=== PATIENT | female | born 1955 | race Caucasian/White ===

== ENCOUNTER → 2017-09-21 | Outpatient (CLI) | payer OTHER ==
--- NOTE | 2017-09-21 13:31 | DIAGNOSTIC IMAGING REPORT ---
MRI LUMBAR SPINE W/O CONTRAST CLINICAL HISTORY: LUMBAR RADICULOPATHY TECHNIQUE: Sagittal and axial T1, T2 and STIR images were obtained. COMPARISON STUDY: No previous studies for comparison. OBSERVATIONS: The vertebral bodies and posterior elements appear intact. There is no abnormal bony signal present to suggest a marrow replacement process. L1-2: No disc protrusions or extrusions. No evidence of spinal canal or neural foraminal compromise. L2-3: No disc protrusions or extrusions. No evidence of spinal canal or neural foraminal compromise. L3-4: There is a circumferential disc bulge asymmetric laterally to the right. There is facet joint hypertrophy. There is minimal triangular spinal canal narrowing. There is no significant foraminal stenosis. L4-5: There is a left paracentral disc protrusion. There is possible impingement of the left L5 nerve root as it separates from the thecal sac. There is no significant foraminal narrowing. There are postsurgical changes of a right hemilaminectomy. L5-S1: There is a small central disc protrusion. There is minor left-sided foraminal narrowing. There is no significant spinal stenosis. The conus appears unremarkable in this noncontrast study. There is marked clumping and displacement of the nerve roots in the cauda equina. Diagnostic considerations include severe arachnoiditis versus a postsurgical arachnoid cyst IMPRESSION: 1. Marked clumping and displacement of the nerve roots in the cauda equina. Diagnostic considerations include severe arachnoiditis versus a postsurgical arachnoid cyst. 2. Left paracentral disc protrusion at the L4-5 level with possible impingement of the left L5 nerve root 3. Small central disc protrusion at the L5-S1 level. Minor left-sided foraminal narrowing. Electronically signed by: Baudilio Samuels M.D. 09/21/2017 1:29 PM Dictated Date/Time: 09/21/2017 12:59 PM
== END | disposition home or self-care (01) ==
LOC: C.MRIBC 11:50
PROVIDERS: ATTEND Pain Medicine Interventional Pain Medicine
DX: M54.16 Radiculopathy, lumbar region (principal)

== ENCOUNTER → 2017-10-26 | Day surgery (SDC) | payer OTHER ==
[~2017-10-26] VITALS: Ht 177.8 cm; Wt 88.7 kg
[~2017-10-26] MED LIST: CYM/30 PO; FRCT/ PO; FRS/40 PO; OXYC-57 PO; SUMA100T16 PO; TOPI100T20 PO; TRAZ50TA35 PO; VNTHFA/IN INH
[2017-10-26 07:57] VITALS: BP 128/90; PULSE 76; TEMP 37; O2SAT 97; Ht 177.8 cm; Wt 88.7 kg
[2017-10-26 09:29] VITALS: BP 88/51; PULSE 66; TEMP 36.6; O2SAT 100
--- NOTE | 2017-10-26 09:35 | Discharge Instructions ---
Discharge Instructions Procedure Procedure Date: Oct 26, 2017. Reason for visit: Lumbar Spine Pain. Discharge Discharge Date: Oct 26, 2017. Discharge Diagnosis: Lumbar back pain Instructions Activity Recommendations: No limitations Return to School/Work: no limitations Recommended Home Diet: Resume Previous Diet Provider Instructions: Fluoroscopic guided lumbar puncture was attempted at L3-L4 and L4-L5. The procedure was unsuccessful and discontinued at the patients request. There were no immediate complications. ACTIVITY RECOMMENDATIONS: * Rest today. * Resume regular activity in one day. MEDICATIONS: * May take Tylenol or Ibuprofen as needed for pain. DIET: * Resume previous diet. SPECIAL CARE INSTRUCTIONS: Call your doctor if: * Temperature above 101 degrees F. * Pain not relieved by pain medicine ordered. * Increased drainage or redness from incision. * Notify your doctor with any questions or concerns. Call your doctor or go to the nearest Emergency Department if you experience: * Increased chest pain or shortness of breath. FOLLOW UP VISIT: Follow-up with Referring Physician as scheduled. Allergies Coded Allergies: NSAIDs (Verified Allergy, Unknown, ANAPHYLAXIS, 10/26/17) Bacilio Reveles Recommendations: Call your doctor if: * Temperature above 101 degrees * Pain not relieved by pain medicine ordered * There is increased drainage or redness from any incision * You have any unanswered questions or concerns. Your Doctors Instructions noted above were prepared by provider Aravind Huber. Patient Signature Section: Patient Instructions Signature Page Maricel Mccormack Patient (or Guardian) Signature/Date: I have read and understand the instructions given to me by my caregivers. Caregiver/RN/Doctor Signature/Date: The above-named patient and/or guardian has received patient instructions on this date. + Original Patient Signature Page (only) stays with chart. Please make copy for patient.
[2017-10-26 09:51] VITALS: BP 122/40; PULSE 61; O2SAT 97
--- NOTE | 2017-10-26 14:39 | DIAGNOSTIC IMAGING REPORT ---
FLUOROSCOPIC LUMBAR PUNCTURE ATTEMPT CLINICAL HISTORY: Low back pain. Spinal stenosis. History of arachnoiditis COMPARISON STUDY: MRI of the lumbar spine dated 09/21/2017. PROCEDURE: The risks, benefits, and alternatives to the procedure was discussed with the patient who voiced understanding. Written informed consent was obtained. The patient was placed prone on the fluoroscopy table. The lower back was prepped and draped in the usual sterile fashion. 1% lidocaine was used for local anesthesia. Lumbar puncture was attempted at the L3-L4 and L4-L5 levels with 22 and 20-gauge spinal needles. The needles appeared to be in appropriate position by fluoroscopy; however, no cerebrospinal fluid was able to be removed and iodinated contrast was not injected. After attempting 2 levels the patient declined to continue the procedure. There were no immediate complications. The patient left department in satisfactory condition. Fluoroscopy time: 1.4 minutes. IMPRESSION: Fluoroscopic guided lumbar puncture attempt. Intrathecal access could not be obtained for contrast injection. Electronically signed by: Aravind Huber M.D. 10/26/2017 2:38 PM Dictated Date/Time: 10/26/2017 2:23 PM
== END | disposition home or self-care (01) ==
LOC: C.ACU 07:37
PROVIDERS: ATTEND Physician Assistant
DX: M48.061 Spinal stenosis, lumbar region without neurogenic claudication (principal)

== ENCOUNTER 2017-11-08 07:03 | Inpatient (IN) | payer OTHER ==
[2017-10-19 11:09] VITALS: BMI 31.0
--- NOTE | 2017-10-19 11:40 | PAT Medication Instructions ---
Service Date Oct 19, 2017. Current Home Medication List Acetamin/Butalbital/Caffeine (Fioricet), 1 TAB PO UD PRN for Migraine Albuterol Hfa (Ventolin Hfa), 2-4 PUFFS INH Q6H PRN for SOB/Wheezing Duloxetine HCl (Cymbalta), 1 CAP PO HS Furosemide (Lasix), 40 MG PO QAM PRN for EDEMA Oxycodone/Acetaminophen 5MG/325MG (Percocet 5MG/325MG), 1-2 TABLETS PO Q4H PRN for Pain Sumatriptan Succinate (Imitrex), 100 MG PO PRN PRN for Migraine Topiramate (Topamax), 100 MG PO QAM Trazodone Hcl (Trazodone), 50 MG PO HS Medication Instructions For Your Scheduled Surgery - Hold the following medications the morning of surgery: Acetamin/Butalbital/Caffeine (Fioricet), 1 TAB PO UD PRN for Migraine Furosemide (Lasix), 40 MG PO QAM PRN for EDEMA - Take the following medications the morning of surgery with a sip of water: Albuterol Hfa (Ventolin Hfa), 2-4 PUFFS INH Q6H PRN for SOB/Wheezing (if needed , and bring it with you to the hospital) Oxycodone/Acetaminophen 5MG/325MG (Percocet 5MG/325MG), 1-2 TABLETS PO Q4H PRN for Pain (if needed, can be used up to four hours before surgery) Sumatriptan Succinate (Imitrex), 100 MG PO PRN PRN for Migraine (if needed) Topiramate (Topamax), 100 MG PO QAM - Take the following medications as scheduled the night before surgery: Acetamin/Butalbital/Caffeine (Fioricet), 1 TAB PO UD PRN for Migraine (if needed ) Albuterol Hfa (Ventolin Hfa), 2-4 PUFFS INH Q6H PRN for SOB/Wheezing (if needed) Duloxetine HCl (Cymbalta), 1 CAP PO HS Oxycodone/Acetaminophen 5MG/325MG (Percocet 5MG/325MG), 1-2 TABLETS PO Q4H PRN for Pain (if needed) Sumatriptan Succinate (Imitrex), 100 MG PO PRN PRN for Migraine (if needed) Trazodone Hcl (Trazodone), 50 MG PO HS If you have any questions please call us at [phone] or [phone] or [phone]
[2017-10-19 12:25] LABS: BASO % 0.2 %; BASO ABS # 0.01 K/uL (0-0.2); EOS % 2.8 %; EOS ABS # 0.13 K/uL (0-0.5); HEMATOCRIT 41.3 % (37-47); HEMOGLOBIN 13.3 g/dL (12.0-16.0); IG# 0.01 K/uL (0.00-0.02); LYMPH % 39.8 %; LYMPH ABS # 1.86 K/uL (1.2-3.4); MEAN CELL VOLUME 93.2 fL (80-100); MEAN CORPUSCULAR HGB CONC 32.2 g/dl (32-36); MEAN PLATELET VOLUME 10.3 fL (7.4-10.4); MONO % 8.1 %; MONO ABS # 0.38 K/uL (0.11-0.59); NEUT % 48.9 %; NEUT ABS # 2.28 K/uL (1.4-6.5); PLATELET COUNT 169 K/uL (130-400); RED CELL DISTRIBUTION WIDTH CV 13.8 % (11.5-14.5); RED CELL DISTRIBUTION WIDTH SD 47.2 fL (36.4-46.3); WHITE BLOOD COUNT 4.67 K/uL (4.8-10.8)
[2017-10-19 12:45] LABS: CREATININE 0.76 mg/dl (0.60-1.20)
[2017-10-19 12:46] LABS: CALCIUM 8.7 mg/dl (8.5-10.1); POTASSIUM 4.2 mmol/L (3.5-5.1)
--- NOTE | 2017-10-19 12:50 | DIAGNOSTIC IMAGING REPORT ---
CHEST 2 VIEWS ROUTINE CLINICAL HISTORY: PAT preoperative evaluation COMPARISON STUDY: No previous studies for comparison. FINDINGS: The bones soft tissues and hemidiaphragms are normal. The cardiomediastinal silhouette is normal. The lungs are clear. The pulmonary vasculature is normal. IMPRESSION: Negative chest. The above report was generated using voice recognition software. It may contain grammatical, syntax or spelling errors. Electronically signed by: Pan Angeles M.D. 10/19/2017 12:49 PM Dictated Date/Time: 10/19/2017 12:48 PM
[2017-11-08] VITALS (9 sets, daily range): BP systolic 94–140; BP diastolic 56–93; PULSE 58–71; TEMP 36.3–36.7; O2SAT 99–100; Ht 177.8 cm; Wt 98.8 kg
[~2017-11-08] VITALS: Ht 177.8 cm; Wt 98.8 kg
[~2017-11-08 07:03] MED LIST changes: +ACETAMINOPHEN 500 MG TAB PO SCH; +CEFAZOLIN 2000MG IV PUSH 15 ML IV SCH; +CeleBREX 200 MG CAP PO SCH; +GABAPENTIN 600 MG PO SCH; +LACTATED RINGER'S 1000ML 1,000 ML IV SCH
[2017-11-08] MEDS ORDERED: FENTANYL CITRATE INJ 50 MCG/1 ML 2 ML VIAL ONE ×4 (09:02→12:58)
[2017-11-08] MEDS ORDERED: DEXAMETHASONE SOD INJ 4 MG/ML VIAL ONE (09:02)
[2017-11-08] MEDS ORDERED: ONDANSETRON INJ 2 MG/ML 2 ML VIAL ONE (09:02)
[2017-11-08] MEDS ORDERED: PROPOFOL IV EMULSION 10 MG/ML 20 ML VIAL ONE (09:02)
[2017-11-08] MEDS ORDERED: MIDAZOLAM HCL 1 MG/ML 2ML VIAL ONE (09:02)
[2017-11-08] MEDS ORDERED: LIDOCAINE HCL 2% 2 ML VIAL (20MG/ML) ONE (09:02)
--- NOTE | 2017-11-08 09:05 | History & Physical Bridge Note ---
H&P Re-Evaluation Bridge Note: I have examined the patient, reviewed the History & Physical and in the interval since the performance of the History & Physical I have noted the following changes of clinical significance: No changes noted
--- NOTE | 2017-11-08 09:05 | History and Physical ---
History & Physical Date November 08, 2017. Chief Complaint Back and leg pain History of Present Illness The patient is a 62 year old female with complaints of back and leg pain Additional History Hepatic Disease: No Endocrine Disorder: No Kidney Disease: No Hypertension: No Heart Disease: No Bleeding Tendencies: No Infectious Diseases: No Allergies Coded Allergies: NSAIDs (Verified Allergy, Unknown, ANAPHYLAXIS, 11/08/17) Home Medications Scheduled Duloxetine HCl (Cymbalta), 1 CAP PO HS Topiramate (Topamax), 100 MG PO QAM Trazodone Hcl (Trazodone), 50 MG PO HS Scheduled PRN Acetamin/Butalbital/Caffeine (Fioricet), 1 TAB PO UD PRN for Migraine Albuterol Hfa (Ventolin Hfa), 2-4 PUFFS INH Q6H PRN for SOB/Wheezing Furosemide (Lasix), 40 MG PO QAM PRN for EDEMA Oxycodone/Acetaminophen 5MG/325MG (Percocet 5MG/325MG), 1-2 TABLETS PO Q4H PRN for Pain Sumatriptan Succinate (Imitrex), 100 MG PO PRN PRN for Migraine Physical Examination Skin: warm/dry, no rash Eyes: normal inspection, EOMI, sclerae normal ENT: normal ENT inspection, pharynx normal Head: normocephalic, atraumatic Neck: supple, no adenopathy, trachea midline Respiratory/Chest: lungs clear, normal breath sounds, no respiratory distress Cardiovascular: regular rate, rhythm, no edema, no murmur Abdomen / GI: normal bowel sounds, non tender Back: normal inspection Extremities: normal inspection, normal range of motion Neurologic/Psych: no motor/sensory deficits, alert, normal reflexes, oriented x 3 Diagnosis Lumbar spinal stenosis with radiculopathy Plan of Treatment L4-S1 decompression and fusion
[2017-11-08] MEDS ORDERED: BACITRACIN 50000 UNIT VIAL ONE (09:22)
[2017-11-08] MEDS ORDERED: BUPIVACAINE/EPINEPHRINE 0.5% MPF 1:200,000 30 ML VIAL ONE (09:22)
[2017-11-08] MEDS ORDERED: EpHEDrine SULFATE 50MG/5ML SYR ONE (10:22)
[2017-11-08] MEDS ORDERED: LABETALOL HCL IV 5 MG/ML 20ML IV PRN (10:45)
[2017-11-08] MEDS ORDERED: PROMETHAZINE HCL INJ 12.5 MG in SODIUM CHLORIDE 0.9% 50ML 50 ML IV PRN ×2 (10:45→12:00)
[2017-11-08] MEDS ORDERED: ONDANSETRON INJ 2 MG/ML 2 ML VIAL IV PRN ×2 (10:45→12:00)
[2017-11-08] MEDS ORDERED: ATROPINE SULFATE 0.1 MG/ML 5ML SYR IV PRN (10:45)
[2017-11-08] MEDS ORDERED: FLOSEAL HEMOSTATIC MATRIX 10ML TOP ONE (11:36)
[2017-11-08] MEDS ORDERED: GLYCOPYRROLATE INJ 0.2 MG/ML VIAL ONE (11:54)
[2017-11-08] MEDS ORDERED: NEOSTIGMINE METHYLSULFATE 1 MG/ML 10ML VIAL ONE (11:54)
[2017-11-08] MEDS ORDERED: SODIUM CHLORIDE 0.9% 1000ML 1,000 ML IV SCH (11:56)
--- NOTE | 2017-11-08 11:56 | [facility] Operative Report ---
Operative Report Operative Date November 08, 2017. Pre-Operative Diagnosis Lumbar spinal stenosis with radiculopathy Post-Operative Diagnosis Same Procedure(s) Performed 1. Revision decompression medial facetectomies foraminotomies L4-5 L5-S1. #2 posterior spinal fusion L4-5 L5-S1. #3 placement of posterior segmental instrumentation L4-5 L5-S1. #4 interbody fusion L4-5 L5-S1. #5 placement of titanium cage 10 x 22 mm at L4-5 and 9 x 22 mm at L5-S1. #6 placement of locally harvested morselized autograft in the posterior lateral gutters. #7 placement of infuse collagen sponge, mass graft the posterior lateral gutters and ostial amp in the interbody space. Surgeon Dr. Forest Torres [employer] Supervisor Surgeon(s) Matilde Palafox PA-C Estimated Blood Loss 200ml Findings Spinal stenosis with herniated nucleus pulposus Specimens None Anesthesia Type General Description of Procedure Patient was met with preoperatively case discussed all questions addressed. After informed consent obtained patient was taken to the operative suite underwent intubation and placed in a prone position on the Dmitriy table on top of the Jeff frame. All bony prominences were well-padded eyes inspected to ensure no external pressure placed upon the. This point the lumbar spine was prepped and draped in normal sterile fashion. Sharp dissection with the assistance of Bovie cautery was performed down to and exposing the remaining lamina and transverse processes of L4-L5 and sacral ala bilaterally. From a caudal to cephalad fashion revision complete laminectomy of L5 L4 was performed addressing severe lateral recess stenosis and foraminal disease. Pedicle screws were then placed in L4 L5-S1 levels bilaterally with the assistance of fluoroscopy and appropriate size laura placed. Through a trans-foraminal approach and left complete discectomy of L5-S1 was performed the endplates curetted curetted to subcortical bleeding bone and a 9 x 22 mm titanium cage filled with ostial amp bone graft tapped in position. Then proceeded L4-5. Again through a transforaminal approach on the left complete discectomy performed including addressed all herniated disc. The endplates curetted to subcortical bleeding bone and a 10 x 22 mm titanium cage filled with ostium bone graft tapped into position. The rods were then compressed locked in final position bilaterally. The transverse processes of L4-L5 and the sacral ala burred to subcortical bleeding bone. Infuse collagen sponge mass graft and locally harvested morselized autograft placed in the posterior gutters. A 15 round NEELAM drain inserted. Incision was then closed with 1 Vicryl fascia 2-0 Vicryl substantially 4 Monocryl for fashion closure Steri-Strips sterile dressings placed. Patient will continue PACU stable condition. Please note Matilde Dalal present throughout the entire procedure involved in patient positioning complex portions of the surgery and fashion closure. I attest to the content of the Intraoperative Record and any orders documented therein. Any exceptions are noted below.
[2017-11-08] MEDS ORDERED: ALUMINUM/MAGNESIUM SUSP 30 ML UDC PO PRN (12:00)
[2017-11-08] MEDS ORDERED: BUTALBITAL/ACETAMIN/CAFFEINE TAB PO PRN (12:00)
[2017-11-08] MEDS ORDERED: ACETAMINOPHEN IV 100 ML IV PRN (12:00)
[2017-11-08] MEDS ORDERED: MAGNESIUM HYDROXIDE SUSP 30 ML UDC PO PRN (12:00)
[2017-11-08] MEDS ORDERED: ALBUTEROL HFA 8 GM INHALER INH PRN (12:00)
[2017-11-08] MEDS ORDERED: METOCLOPRAMIDE HCL INJ 5 MG/ML 2 ML VIAL IV PRN (12:00)
[2017-11-08] MEDS ORDERED: DO NOT ADMINISTER PNEUMOCOCCAL VACCINE PRN (12:00)
[2017-11-08] MEDS ORDERED: NALOXONE HCL 0.4 MG/1 ML VIAL/CARP IV PRN ×2 (12:00)
[2017-11-08] MEDS ORDERED: FUROSEMIDE 40 MG TAB PO PRN (12:00)
[2017-11-08] MEDS ORDERED: SUMATRIPTAN SUCC TAB 100 MG TAB PO PRN (12:00)
[2017-11-08] MEDS ORDERED: LORAZEPAM INJ 0.5 MG in SYRINGE 0.75 ML IV PRN (12:00)
[2017-11-08] MEDS ORDERED: FAMOTIDINE 20 MG TAB PO PRN (12:00)
[2017-11-08] MEDS ORDERED: BISACODYL 10 MG SUPP PR PRN (12:00)
[2017-11-08] MEDS ORDERED: DO NOT ADMINISTER FLU VACCINE PRN (12:00)
[2017-11-08] MEDS ORDERED: SOD PHOSPHATE/SOD BIPHOSPHATE ENEMA 132 ML BTL PR PRN (12:00)
[2017-11-08] MEDS ORDERED: hydrOXYzine HCL 25 MG TAB PO PRN (12:00)
[2017-11-08] MEDS ORDERED: HYDROmorphone HCL 0.5MG/ML 50 ML CASSETTE ONE (12:21)
--- NOTE | 2017-11-08 12:24 | DIAGNOSTIC IMAGING REPORT ---
LUMBAR SPINE, INTRAOPERATIVE FLUOROSCOPY HISTORY: L4 S1 decompression and fusion. FLUOROSCOPY TIME: 35 seconds. FINDINGS: Intraoperative fluoroscopy was provided for the lumbar spine. 2 fluoroscopic spot images were obtained. L4-S1 posterior decompression and fusion with pedicle screws and rods. The hardware appears intact. Disc spacers are also present at these levels. IMPRESSION: Fluoroscopy provided for a L4-S1 posterior decompression and fusion. Electronically signed by: Carter Hobson M.D. 11/08/2017 12:22 PM Dictated Date/Time: 11/08/2017 12:21 PM
[2017-11-08] MEDS ORDERED: HYDROmorphone INJ 2 MG/ML SYR/VIAL ONE (12:27)
[2017-11-08] MEDS: HYDROmorphone INJ 2 MG/ML SYR/VIAL IV PRN ×7 (12:36→13:33)
[2017-11-08] MEDS ORDERED: FENTANYL CITRATE INJ 50 MCG/1 ML 2 ML VIAL IV PRN (13:00)
[2017-11-08] MEDS ORDERED: NURSING VERBAL MED ORDER ONE ×2 (13:15)
--- NOTE | 2017-11-08 13:50 | Anesthesiology Progress Note ---
Anesthesia Post Op Note Date & Time November 08, 2017 at 13:50 Vital Signs Pain Intensity: 6 Vital Signs Past 12 Hours Date Time Temp Pulse Resp B/P (MAP) Pulse Ox O2 Delivery O2 Flow Rate FiO2 11/08/17 13:38 36.3 100 Nasal Cannula 2 11/08/17 13:36 119/69 11/08/17 13:33 66 16 11/08/17 13:33 66 16 100 11/08/17 13:31 133/62 11/08/17 13:28 63 13 11/08/17 13:28 64 13 100 11/08/17 13:27 65 19 11/08/17 13:27 64 19 100 11/08/17 13:25 148/71 11/08/17 13:22 69 17 11/08/17 13:22 69 17 98 11/08/17 13:21 113/77 11/08/17 13:17 65 16 100 11/08/17 13:17 65 16 11/08/17 13:16 116/86 11/08/17 13:12 62 13 11/08/17 13:12 63 13 100 11/08/17 13:11 130/96 11/08/17 13:07 65 14 11/08/17 13:07 66 14 100 11/08/17 13:06 132/81 11/08/17 13:02 62 19 100 11/08/17 13:02 62 19 11/08/17 13:01 123/101 11/08/17 12:57 69 22 100 11/08/17 12:57 68 22 11/08/17 12:52 66 12 100 11/08/17 12:52 67 12 11/08/17 12:51 137/75 11/08/17 12:47 64 16 11/08/17 12:47 63 16 100 11/08/17 12:46 119/73 11/08/17 12:42 65 16 98 11/08/17 12:42 63 16 11/08/17 12:41 131/80 11/08/17 12:40 67 14 11/08/17 12:40 68 14 100 11/08/17 12:37 110/96 11/08/17 12:35 64 18 11/08/17 12:35 64 18 11/08/17 12:31 140/64 11/08/17 12:30 65 12 100 5/7/18 12:30 64 12 11/08/17 12:26 139/70 11/08/17 12:25 67 16 100 11/08/17 12:25 60 16 11/08/17 12:21 137/70 11/08/17 12:20 68 15 100 11/08/17 12:20 68 15 11/08/17 12:15 36.8 68 16 138/76 100 Oxymask 10 11/08/17 12:15 71 138/76 100 11/08/17 12:15 71 11/08/17 07:15 36.7 70 20 140/93 99 Room Air Notes Mental Status: alert / awake / arousable, participated in evaluation Pt Amnestic to Procedure: Yes Nausea / Vomiting: adequately controlled Pain: adequately controlled Airway Patency, RR, SpO2: stable & adequate BP & HR: stable & adequate Hydration State: stable & adequate Anesthetic Complications: no major complications apparent
[2017-11-08] MEDS: HYDROmorphone HCL 0.5MG/ML 50 ML CASSETTE IV PRN ×3 (13:53→23:08)
[2017-11-08] MEDS: SODIUM CHLORIDE 0.9% 1000ML 1,000 ML IV SCH ×2 (13:58→21:01)
[2017-11-08] MEDS: CEFAZOLIN IV 2,000 MG in SYRINGE 0 ML IV SCH (17:38)
[2017-11-08] MEDS: TRAZODONE HCL 50 MG TAB PO SCH (21:01)
[2017-11-08] MEDS: DULOXETINE (CYMBALTA) 30 MG CAP PO SCH (21:02)
[2017-11-08] MEDS: DOCUSATE SODIUM/SENNA 50/8.6MG TAB PO SCH (21:02)
[2017-11-08] MEDS: LORAZEPAM 0.5 MG TAB PO PRN (23:41)
[2017-11-09] MEDS: CEFAZOLIN IV 2,000 MG in SYRINGE 0 ML IV SCH (02:37)
[2017-11-09] MEDS: SODIUM CHLORIDE 0.9% 1000ML 1,000 ML IV SCH (02:38)
[2017-11-09 03:24] VITALS: BP 105/68; PULSE 64; TEMP 36.8; O2SAT 99
[2017-11-09] MEDS ORDERED: DC PCA SCH (06:00)
[2017-11-09 06:07] LABS: BASO % 0.2 %; BASO ABS # 0.01 K/uL (0-0.2); EOS % 1.2 %; EOS ABS # 0.07 K/uL (0-0.5); HEMATOCRIT 34.6 % (37-47); IG# 0.01 K/uL (0.00-0.02); LYMPH % 31.9 %; LYMPH ABS # 1.83 K/uL (1.2-3.4); MEAN CELL VOLUME 93.3 fL (80-100); MEAN CORPUSCULAR HEMOGLOBIN 29.6 pg (25-34); MEAN CORPUSCULAR HGB CONC 31.8 g/dl (32-36); MEAN PLATELET VOLUME 9.5 fL (7.4-10.4); MONO % 8.6 %; MONO ABS # 0.49 K/uL (0.11-0.59); NEUT % 57.9 %; NEUT ABS # 3.32 K/uL (1.4-6.5); PLATELET COUNT 129 K/uL (130-400); RED CELL DISTRIBUTION WIDTH SD 48.3 fL (36.4-46.3); WHITE BLOOD COUNT 5.73 K/uL (4.8-10.8)
[2017-11-09] MEDS ORDERED: NURSING DECISION MEDICATION ORDER SCH (06:30)
[2017-11-09] MEDS: HYDROmorphone INJ 0.5 MG/0.5 ML SYR IV PRN ×4 (06:34→22:14)
[2017-11-09 06:40] LABS: CREATININE 0.62 mg/dl (0.60-1.20); POTASSIUM 4.1 mmol/L (3.5-5.1)
[2017-11-09 07:45] VITALS: BP 128/70; PULSE 71; TEMP 37; O2SAT 97
[2017-11-09 08:13] VITALS: O2SAT 97
[2017-11-09] MEDS: OXYCODONE HCL IR 5 MG TAB (IMMEDIATE RELEASE) PO PRN ×3 (09:16→20:50)
[2017-11-09] MEDS: TOPIRAMATE 100 MG TAB PO SCH (09:16)
[2017-11-09] MEDS ORDERED: RXC5 PO (09:41)
--- NOTE | 2017-11-09 09:42 | Discharge Instructions ---
Discharge Instructions Date of Service November 09, 2017. Admission Reason for Admission: Lumbar Spinal Stenosis Discharge Discharge Diagnosis / Problem: lumbar stenosis Discharge Goals Goal(s): Improve function Activity Recommendations Activity Limitations: per Instructions/Follow-up section . Instructions / Follow-Up Instructions / Follow-Up ACTIVITY RECOMMENDATIONS: SELF CARE INSTRUCTIONS AFTER THORACIC/LUMBAR FUSIONS 1. You may walk to your tolerance. It is good exercise for your legs and back. Expect some back and intermittent leg aches and pains. 2. You may perform "counter-top" level activities (make a sandwich, isai with a project, etc.). 3. No bending or lifting of more than 10 pounds or back twisting of any nature (roll like a log when turning in bed). 4. You may ride in a car for 20-30 minutes at a time. No driving until after your first visit with your doctor. 5. Frequent changes of position and restricting sitting to 30 minutes at a time will help limit the amount of back spasms and stiffness you may experience. 6. You may discontinue the use of ambulatory aids (cane, crutches, etc.) once your strength and confidence allow. 7. You may supervisor mattress and boxsprings the shower and let water strike your incision when you arrive home at least once daily. Do not take a tub bath, sit in a hot tub or go into a swimming pool until after your first recheck in the office. SPECIAL CARE INSTRUCTIONS: VERY IMPORTANT TO READ AND REVIEW A. Your surgical incision has been closed with a cosmetic suture under the skin that will dissolve in about 6 weeks. In 14 days, you can use a pair of clean scissors and cut the suture that is left outside of the skin at the ends of your incision. 1. The small skin tapes can be removed 7 days after surgery if they have not fallen off by that point. 2. You may keep the wound open to air as much as possible to promote healing after post-op day number 5 unless told otherwise by your doctor. 3. If you think the wound looks like it is becoming infected (redness or worsening drainage) and/or you are experiencing fever, chill or worsening back pain and muscle spasms, contact the office so that we may evaluate you as soon as possible. B. Complications are uncommon, but please contact us if you have any signs or symptoms of: 1. wound infection (fever higher than 102.5 degrees F, redness, separation of wound, drainage, or increasing pain from the incision) 2. blood clots in legs (pain, swelling, redness and warmth in legs) 3. urinary tract infection (fever higher than 102.5 degrees F, burning upon urination or increased frequency of urination) 4. nerve problems (inability to walk on your toes or heels, numbness, loss of bowel or bladder control) 5. any other symptoms that concern you C. Please call the office at if you have any concerns or questions about your operation or recovery. D. No smoking! Smoking drastically decreases the chance of a solid fusion. E. Do not take any anti-inflammatory medications (Indocin, Advil, Motrin, Aspirin, Naprosyn, etc.) as these may inhibit the chance of a solid fusion. Tylenol is okay to take for pain. MANAGING PAIN AFTER SPINAL SURGERY 1. Narcotic medication is intended for short-term use and will be provided for surgical pain. Surgical pain usually lasts for a period of 4-6 weeks. Narcotic medication includes Percocet, Vicodin, Darvocet, Tylenol #3 or Lortab. 2. Longer-term pain is more appropriately treated with non-narcotic medication such as Tylenol ES. 3. Muscle spasm is not appropriately treated with narcotics. Muscle relaxers such as Soma, Flexeril or Skelaxin can be used along with Tylenol ES. 4. Remember that we all live with some "aches and pains". This is not unusual or uncommon after an injury or as we get older. a. Back pain is expected and may include muscle spasms for 4 to 6 weeks after surgery. The pain should gradually improve. If the pain worsens for no apparent reason, please contact the office. b. Intermittent leg pain may also be experienced and should not be concerned about unless it worsens for no apparent reason. If so, please contact the office. 5. We will provide appropriate medication within the normal guidelines of their prescribed use. We will also be very cautious and aware of potential abuse and extended duration of patients' medication needs. a. Pain medications are for your comfort and to assist with sleep and rest so that the tissue can heal. They are not provided in order to return to normal activity and should not be used through the day. To do so or worsening pain at night can result from ongoing tissue damage and development of tolerance to the prescribed medicine. 6. Please allow 2-3 days to process refills. Prescriptions will not be mailed but must be picked up at the office. FOLLOW UP VISIT: Keep your scheduled follow-up appointment. Any questions, please call the office at . Current Hospital Diet Patient's current hospital diet: Regular Diet Discharge Diet Recommended Diet: Regular Diet Procedures Procedures Performed: 1. Revision decompression medial facetectomies foraminotomies L4-5 L5-S1. #2 posterior spinal fusion L4-5 L5-S1. #3 placement of posterior segmental instrumentation L4-5 L5-S1. #4 interbody fusion L4-5 L5-S1. #5 placement of titanium cage 10 x 22 mm at L4-5 and 9 x 22 mm at L5-S1. #6 placement of locally harvested morselized autograft in the posterior lateral gutters. #7 placement of infuse collagen sponge, mass graft the posterior lateral gutters and ostial amp in the interbody space. Pending Studies Studies pending at discharge: no Medical Emergencies . Who to Call and When: Medical Emergencies: If at any time you feel your situation is an emergency, please call 911 immediately. . Non-Emergent Contact Non-Emergency issues call your: Primary Care Provider . "Provider Documentation" section prepared by Forest Torres. .
[2017-11-09 10:10] VITALS: BP 107/67; PULSE 74; O2SAT 97
--- NOTE | 2017-11-09 10:29 | Anesthesiology Progress Note ---
Anesthesia Post Op Note Date & Time November 09, 2017 at 10:29 Vital Signs Pain Intensity: 7.0 Vital Signs Past 12 Hours Date Time Temp Pulse Resp B/P (MAP) Pulse Ox O2 Delivery O2 Flow Rate FiO2 11/09/17 08:13 97 Room Air 11/09/17 08:10 Room Air 11/09/17 07:45 37.0 71 15 128/70 (89) 97 Room Air 11/09/17 03:24 36.8 64 14 105/68 (80) 99 Room Air 11/09/17 00:00 Room Air 11/08/17 22:52 36.7 62 14 127/72 (90) 99 Room Air Notes Mental Status: alert / awake / arousable, participated in evaluation Pt Amnestic to Procedure: Yes Nausea / Vomiting: adequately controlled Pain: adequately controlled Airway Patency, RR, SpO2: stable & adequate BP & HR: stable & adequate Hydration State: stable & adequate Anesthetic Complications: no major complications apparent
[2017-11-09] MEDS: ACETAMINOPHEN 500 MG TAB PO PRN (10:58)
[2017-11-09 11:31] VITALS: BP 116/62; PULSE 72; TEMP 37; O2SAT 98
--- NOTE | 2017-11-09 12:00 | Progress Note ---
Progress Note Date of Service November 09, 2017. Progress Note Patient's back pain is controlled. Her left leg symptoms markedly improved. Vital signs are stable. Exam she is sitting up in bed has good strength testing appears comfortable. Assessment status post lumbar decompression fusion. Plan at this time will continue physical therapy advance her bowel regiment anticipate home in the next day or so.
[2017-11-09 15:36] VITALS: BP 123/79; PULSE 64; TEMP 36.3; O2SAT 95
[2017-11-09] MEDS: DULOXETINE (CYMBALTA) 30 MG CAP PO SCH (22:09)
[2017-11-09] MEDS: TRAZODONE HCL 50 MG TAB PO SCH (22:09)
[2017-11-09] MEDS: DOCUSATE SODIUM/SENNA 50/8.6MG TAB PO SCH (22:09)
[2017-11-09] MEDS: LORAZEPAM 0.5 MG TAB PO PRN (22:12)
[2017-11-10 00:09] VITALS: BP 108/66; PULSE 75; TEMP 37.7; O2SAT 95
[2017-11-10] MEDS: OXYCODONE HCL IR 5 MG TAB (IMMEDIATE RELEASE) PO PRN ×5 (00:51→22:30)
[2017-11-10] MEDS: POLYETHYLENE (MIRALAX) 17 GM PACK PO SCH ×4 (05:34→23:47)
[2017-11-10 07:35] VITALS: BP 130/78; PULSE 66; TEMP 37; O2SAT 97
[2017-11-10] MEDS: TOPIRAMATE 100 MG TAB PO SCH (08:10)
[2017-11-10] MEDS: ACETAMINOPHEN 500 MG TAB PO PRN (08:11)
[2017-11-10] MEDS: LORAZEPAM 0.5 MG TAB PO PRN ×2 (08:11→20:37)
--- NOTE | 2017-11-10 10:05 | Progress Note ---
Progress Note Date of Service November 10, 2017. Progress Note Patient complaining mostly of back pain. Leg symptoms continue to improve. On exam she is in the chair at the bedside. She has reasonable strength testing. Assessment status post lumbar decompression fusion per plan at this time will maintain the NEELAM drain another 24 hours. We will give her 1 dose of Decadron. We will possibly discharge her home tomorrow.
[2017-11-10] MEDS ORDERED: DEXAMETHASONE INJ 8 MG in SYRINGE 0 ML IV ONE (10:45)
[2017-11-10 15:53] VITALS: BP 154/79; O2SAT 96
[2017-11-10 16:23] VITALS: BP 119/73; PULSE 62; TEMP 36.9; O2SAT 100
[2017-11-10] MEDS: TRAZODONE HCL 50 MG TAB PO SCH (20:29)
[2017-11-10] MEDS: DOCUSATE SODIUM/SENNA 50/8.6MG TAB PO SCH (20:29)
[2017-11-10] MEDS: DULOXETINE (CYMBALTA) 30 MG CAP PO SCH (20:29)
[2017-11-10 23:02] VITALS: BP 123/65; PULSE 73; TEMP 37; O2SAT 94
[2017-11-11] MEDS: OXYCODONE HCL IR 5 MG TAB (IMMEDIATE RELEASE) PO PRN ×3 (05:05→13:09)
[2017-11-11] MEDS: POLYETHYLENE (MIRALAX) 17 GM PACK PO SCH ×2 (05:06→12:00)
[2017-11-11 07:55] VITALS: BP 128/80; PULSE 62; TEMP 36.7; O2SAT 99
[2017-11-11 08:12] VITALS: BP 128/80; PULSE 62; TEMP 36.7; O2SAT 99
[2017-11-11] MEDS: TOPIRAMATE 100 MG TAB PO SCH (08:30)
[2017-11-11] MEDS ORDERED: ATV5 PO (08:41)
--- NOTE | 2017-11-11 08:56 | Discharge Summary ---
Orthopedic Discharge Summary Admission Date/Reason November 08, 2017 at 09:30 Lumbar Spinal Stenosis. Discharge Date/Disposition November 11, 2017 Home Diagnosis Principal Diagnosis: Lumbar spinal stenosis Admission Physical Exam As per Admitting History & Physical. Hospital Course Patient underwent lumbar decompression fusion tolerated as well as taken to the orthopedic floor postoperatively. Postop day #1 she was up and amatory progressed the postop day #2 postop day #3 she was subsequently discharged home. Discharge orders and instructions can be found in the chart for further review. Discharge Instructions Please refer to the electronic Patient Visit Report (Discharge Instructions) for additional information.
[2017-11-11] MEDS: LORAZEPAM 0.5 MG TAB PO PRN (11:31)
== END 2017-11-11 14:40 | disposition home or self-care (01) | DRG 455 ==
LOC: C.ACU 07:03 → C.3E 09:30 → ENRESERV 13:14
PROVIDERS: ADMIT Orthopaedic Surgery Orthopaedic Surgery of the Spine; ATTEND Orthopaedic Surgery Orthopaedic Surgery of the Spine
PROC: 0SG00AJ Fusion of Lumbar Vertebral Joint with Interbody Fusion Device, Posterior Approach, Anterior Column, Open Approach (ICD-10-PCS; principal; 2017-11-08 09:15)
PROC: 0SG3071 Fusion of Lumbosacral Joint with Autologous Tissue Substitute, Posterior Approach, Posterior Column, Open Approach (ICD-10-PCS; principal; 2017-11-08 09:15)
PROC: 0SG30AJ Fusion of Lumbosacral Joint with Interbody Fusion Device, Posterior Approach, Anterior Column, Open Approach (ICD-10-PCS; principal; 2017-11-08 09:15)
PROC: 0SG0071 Fusion of Lumbar Vertebral Joint with Autologous Tissue Substitute, Posterior Approach, Posterior Column, Open Approach (ICD-10-PCS; principal; 2017-11-08 09:15)
PROC: 0ST20ZZ Resection of Lumbar Vertebral Disc, Open Approach (ICD-10-PCS; principal; 2017-11-08 09:15)
PROC: 0ST40ZZ Resection of Lumbosacral Disc, Open Approach (ICD-10-PCS; principal; 2017-11-08 09:15)
DX: M48.061 Spinal stenosis, lumbar region without neurogenic claudication (principal); M54.16 Radiculopathy, lumbar region; Z88.6 Allergy status to analgesic agent

== ENCOUNTER 2018-10-26 05:02 | Inpatient (IN) ==
--- NOTE | 2018-09-13 12:43 | Anesthesiology Consultation ---
Date of Service September 13, 2018 Assessment & Plan (1) Encounter for pre-operative examination: PATIENT REQUESTING NO SPINAL ANESTHESIA DUE TO H/O ARACHNOIDITIS. PT IS AMENABLE TO ADDUCTOR CANAL BLOCK. Chart Review Chart Review: Acceptable Risk for Surgery and Patient seen in Pre Admission Testing Teaching & Discussion Instructed NPO after midnight before surgery, except medications with 15 cc of water. Medication instructions provided according to the PAT guidelines. History Surgery Operation Date: 10/26/18 11:30 Proposed Procedures p Right Total Knee Arthroplasty - Juan M Toribio MD Height/Weight Height: 5 ft 10 in Weight: 101.7 kg Allergies Allergy/AdvReac Type Severity Reaction Status Date / Time NSAIDS (Non-Steroidal Allergy Unknown ANAPHYLAXIS Verified 09/12/18 09:47 Anti-Inflamma Medications Home Medications Medication Instructions Recorded Confirmed Last Taken albuterol sulfate 2 puff INHALATION QID PRN 09/12/18 09/12/18 Unknown ngestegahs-nptawlwpgbdic-pnit 1 cap PO Q6H PRN 09/12/18 09/12/18 Unknown [Fioricet] cyclobenzaprine 5 mg PO TID PRN 09/12/18 09/12/18 Unknown duloxetine [Cymbalta] 60 mg PO HS 09/12/18 09/12/18 Unknown furosemide 40 mg PO QAM PRN 09/12/18 09/12/18 Unknown oxycodone-acetaminophen 1 tab PO Q6H PRN 09/12/18 09/12/18 Unknown prednisone 5 mg PO UD PRN 09/12/18 09/12/18 Unknown sumatriptan succinate 100 mg PO UD PRN 09/12/18 09/12/18 Unknown topiramate 200 mg PO QAM 09/12/18 09/12/18 Unknown trazodone 50 mg PO HS 09/12/18 09/12/18 Unknown Past Medical History Medical History Arachnoiditis PT STATES SHE TAKES A PRN PREDNISONE TAPER FOR "FLARE UPS"--these happen randomly. Per pt thought to have been caused by first spine surgery ~35yrs ago. Flare ups include severe lower extremity pain and numbness. Asthma WELL CONTROLLED Degenerative disc disease Migraine Obesity Past Surgical History Surgical History Fusion of spine 2 LEVEL CERVICAL FUSION, 1 LUMBAR (2 LEVEL) FUSION 11/2017. 2 PREVIOUS C-SPINE AND LUMBAR SURGERIES (NOT FUSIONS) H/O elbow surgery History of arthroscopic knee surgery History of bilateral oophorectomy RIGHT History of bilateral tubal ligation History of carpal tunnel release History of gastric bypass History of shoulder surgery LEFT RCR, AND IMANI PROCEDURE History of total knee replacement LEFT. PT BELIEVES THIS WAS DONE WITH GENERAL ANESTHESIA, ~10 YRS AGO. Past Anesthesia History No Hx of Anesthesia Complications and No Family Hx of Anesthesia Complications 11/08/17 L4-S1 dec/fusion @ [facility]: MAC 3, ETT 7.0, +cricoid pressure to improve view (grade view III). DVL attempt x 1; kept neck neutral, only base of cords seen. Atraumatic. With extubation: "small lip laceration noted L upper lip." *PT NOTES WAS TO HAVE SPINAL MRI WITH CONTRAST LAST YEAR AND THEY WERE UNABLE TO INJECT THE DYE INTO HER SPINE. SEE LUMBAR IMAGING BELOW FOR FURTHER DETAIL. History of PONV No Motion Sickness Screening History of Motion Sickness: No Social History Smoking Status: Never smoker Do You Dip or Chew Tobacco: No Hx Alcohol Use: No Alcohol Intake Frequency Comment: 0 Hx Substance Use: No substance use type: does not use Exercise / Class Metabolic Activity II 4-5 Yardwork/Stairs/Walk up hill (Denies CP or SOB with stairs) Review of Systems Pt denies any recent chest pain, shortness of breath, palpitations, cough, fever or URI. Physical Exam Vital Signs BP: 110/74 P: 70bpm SPO2: 100% RA T: 98.3 F R: 16 ENMT Mouth: + dental restorations (few caps on molars); no chipped teeth and no loose teeth Thyromental Distance: < 3.5 Finger Breadths (3) Mallampati Class: II Neck normal visual inspection and + limited neck extension (moderately) Respiratory normal respiratory effort Auscultation: lungs clear to auscultation bilaterally Cardiovascular Rate/Rhythm: regular rate and regular rhythm Heart Sounds: no murmur Vessels: no carotid bruit Extremities: + edema (+2 nonpitting B/L, baseline per pt) Testing Electrocardiogram Date: 09/13/18 Findings: + NSR @ (69) Chest X-Ray Date: 09/13/18 Findings: + NAD Other Testing Lumbar Spine MRI 09/21/17 1. Marked clumping and displacement of the nerve roots in the cauda equina. Diagnostic considerations include severe arachnoiditis versus a post-surgical arachnoid cyst. 2. Left paracentral disc protrusion at the L4-5 level with possible impingementof the left L5 nerve root 3. Small central disc protrusion at the L5-S1 level. Minor left-sided foraminal narrowing. Laboratory Results 09/13/18 14:16 09/13/18 14:16 Blood Type O Negative 09/13/18 14:16 Antibody Screen NEGATIVE 09/13/18 14:16 PT 10.4 Seconds (9.0-12.0) 09/13/18 14:16 INR 1.0 (0.9-1.1) 09/13/18 14:16 APTT 25.9 Seconds (21.0-31.0) 09/13/18 14:16 Hemoglobin A1c 5.7 % (4.5-5.6) H 09/13/18 14:16 Urine Color Dark Yellow 09/13/18 Unknown Urine Appearance Turbid (Clear) H 09/13/18 Unknown Urine pH 7.5 (4.5-7.5) 09/13/18 Unknown Ur Specific [place] 1.025 (1.000-1.030) 09/13/18 Unknown Urine Protein Negative (Negative) 09/13/18 Unknown Urine Glucose (UA) Negative (Negative) 09/13/18 Unknown Urine Ketones Negative (Negative) 09/13/18 Unknown Urine Nitrite Negative (Negative) 09/13/18 Unknown Ur Leukocyte Esterase Negative (Negative) 09/13/18 Unknown Urine WBC (Auto) 1-5 /hpf (0-5) 09/13/18 Unknown Urine RBC (Auto) 10-30 /hpf (0-4) H 09/13/18 Unknown U Hyaline Cast (Auto) 0 /lpf (0-5) 09/13/18 Unknown U Epithel Cells (Auto) >30 /lpf (0-5) H 09/13/18 Unknown Urine Bacteria (Auto) Negative (Negative) 09/13/18 Unknown
--- NOTE | 2018-09-13 12:46 | PAT Medication Instructions ---
Medication Instructions Date of Service September 13, 2018 Home Medications albuterol sulfate 2 puff INHALATION QID PRN kxhclzbevp-xuxxlnsqbtopn-ktpt [Fioricet] 1 cap PO Q6H PRN cyclobenzaprine 5 mg PO TID PRN duloxetine [Cymbalta] 60 mg PO HS furosemide 40 mg PO QAM PRN oxycodone-acetaminophen 1 tab PO Q6H PRN prednisone 5 mg PO UD PRN sumatriptan succinate 100 mg PO UD PRN topiramate 200 mg PO QAM trazodone 50 mg PO HS DO NOT take the morning of surgery lzuzaopcul-cjevgmocigkoe-ffml [Fioricet] 1 cap PO Q6H PRN cyclobenzaprine 5 mg PO TID PRN furosemide 40 mg PO QAM PRN Take morning of surgery With a small sip of water, OTHERWISE NOTHING TO EAT OR DRINK AFTER MIDNIGHT: albuterol sulfate 2 puff INHALATION QID PRN (if needed, and please bring with you to the hospital) oxycodone-acetaminophen 1 tab PO Q6H PRN (if needed, may be taken up to four hours before surgery) prednisone 5 mg PO UD PRN (if needed) sumatriptan succinate 100 mg PO UD PRN (if needed) topiramate 200 mg PO QAM Take evening before surgery albuterol sulfate 2 puff INHALATION QID PRN (if needed) urpkczcxlm-bhpleebzgvkjn-dsrp [Fioricet] 1 cap PO Q6H PRN (if needed) cyclobenzaprine 5 mg PO TID PRN (if needed) duloxetine [Cymbalta] 60 mg PO HS oxycodone-acetaminophen 1 tab PO Q6H PRN (if needed) prednisone 5 mg PO UD PRN (if needed) sumatriptan succinate 100 mg PO UD PRN (if needed) trazodone 50 mg PO HS Other Notes If you have any questions please call us at [phone] or [phone] or [phone] or [phone]
--- NOTE | 2018-09-13 14:57 | XRay Report ---
XR chest Pre-admission PA/Lat CLINICAL HISTORY: pat preoperative evaluation COMPARISON STUDY: No previous studies for comparison. FINDINGS: The bones soft tissues and hemidiaphragms are normal. The cardiomediastinal silhouette is n ormal. The lungs are clear. The pulmonary vasculature is normal. IMPRESSION: Negative chest. The above report was generated using voice recognition software. It may contain grammatical, syntax or spelling errors. Electronically signed by: Pan Angeles M.D. 09/13/2018 2:55 PM
[2018-09-13 15:53] LABS: Basophils # (auto) 0.02 K/uL (0-0.2); Basophils % (auto) 0.5 %; Eosinophils # (auto) 0.11 K/uL (0-0.5); Eosinophils % (auto) 2.7 %; Hematocrit (blood only) 36.1 % (37-47); Hemoglobin 11.2 g/dL (12.0-16.0); Lymphocytes # (auto) 1.68 K/uL (1.2-3.4); Lymphocytes % (auto) 41.9 %; Mean Corpuscular Volume 88.7 fL (80-100); Mean Platelet Volume 10.2 fL (7.4-10.4); Monocytes # (auto) 0.29 K/uL (0.11-0.59); Monocytes % (auto) 7.2 %; Neutrophils # (auto) 1.91 K/uL (1.4-6.5); Neutrophils % (auto) 47.7 %; Platelet Count 158 K/uL (130-400); RDW Standard Deviation 48.6 fL (36.4-46.3); Red Blood Count 4.07 M/uL (4.2-5.4); White Blood Count 4.01 K/uL (4.8-10.8)
[2018-09-13 15:56] LABS: Appearance Urine Turbid (Clear); Bacteria Urine Automated Negative (Negative); Bilirubin Urine Negative (Negative); Blood Urine Negative (Negative); Cast Urine Automated 0 /lpf (0-5); Color Urine Dark Yellow; Epithelial Cell Urine Auto >30 /lpf (0-5); Glucose Urine UA Negative (Negative); Ketones Urine Negative (Negative); Leukocyte Esterase Urine Negative (Negative); Nitrite Urine Negative (Negative); Protein Urine Negative (Negative); Specific Gravity Urine 1.025 (1.000-1.030); Urobilinogen Urine Negative (Negative); pH Urine 7.5 (4.5-7.5)
[2018-09-13 16:04] LABS: Partial Thromboplastin Time 25.9 Seconds (21.0-31.0); Prothrombin Time 10.4 Seconds (9.0-12.0)
[2018-09-13 16:05] LABS: Calcium Oxalate Crystals Urine Present (None Prsent)
[2018-09-13 16:21] LABS: Albumin Level 3.3 gm/dl (3.4-5.0); BUN Creatinine Ratio 23.9 (10-20); Calcium 8.3 mg/dl (8.5-10.1); Creatinine Clr Calc Pharmacy 107.6 ml/min; Est GFR (African American) 107.6; Est GFR (Non-African American) 92.9
[2018-09-13 16:37] LABS: Estimated Average Glucose 117 mg/dl; Hemoglobin A1C 5.7 % (4.5-5.6)
--- NOTE | 2018-10-25 16:54 | History and Physical Report ---
DATE OF ADMISSION: 10/26/2018 CHIEF COMPLAINT: Chronic right knee pain. HISTORY OF PRESENT ILLNESS: This is a 62-year-old female patient of Dr. Toribio'gricel complaining of chronic right knee pain, longstanding, now progressively getting worse. The patient has been diagnosed with end-stage osteoarthritis per clinical and radiographic exams. The patient has failed conservative treatment including intraarticular injections. She has an allergy to anti-inflammatories. The patient has increased pain with weightbearing activities and her pain does interfere with her activities of daily living. The patient wished to proceed with a right total knee arthroplasty. PAST MEDICAL HISTORY: Asthma, peripheral neuropathy, osteoarthritis, spine problems, neck problems. SOCIAL HISTORY: Nonsmoker, nondrinker. PAST SURGICAL HISTORY: Lumbar spine fusion, cervical spine fusion, rotator cuff on the left, right elbow, left carpal tunnel, gastric bypass, oophorectomy on the left, left total knee replacement, left meniscal repair. FAMILY HISTORY: Noncontributory. REVIEW OF SYSTEMS: Chronic right knee pain, otherwise denies any shortness of breath, chest pain, nausea, vomiting or any other joint complaints. MEDICATIONS: Duloxetine 60 mg twice daily, Butal acetaminophen and caffeine 1-2 tablets every 4 hours as needed, topiramate 200 mg 2 tablets 2 twice daily, furosemide 400 mg daily as needed, sumatriptan 100 mg once as needed for migraines, ProAir HFA 90 mcg actuation aerosol 2 puffs every 4-6 hours p.r.n. ALLERGIES: NSAIDS WHICH CAUSE ANAPHYLAXIS. PHYSICAL EXAMINATION: GENERAL: Well-developed, well-nourished 62-year-old female in no acute distress. She is alert and oriented x3 and pleasant. HEENT: Normocephalic, atraumatic. Extraocular motions are intact. Pupils are equal, reactive to light. HEART: Regular rate and rhythm, no murmurs. LUNGS: Clear. ABDOMEN: Soft, nontender, bowel sounds present. EXTREMITIES: Right knee reveals a valgus deformity with lateral joint line tenderness. She has a mild effusion. She has crepitation with passive range of motion. She has 5/5 strength. NEUROLOGIC: Neurovascularly, she is intact in her right lower extremity. DIAGNOSES: Right knee end-stage osteoarthritis, asthma, peripheral neuropathy, osteoarthritis, spine problems, neck problems, sciatica. PLAN: The patient was advised of her diagnosis. Indications, risks, benefits, postop course have all been reviewed. The patient wished to proceed with a right total knee arthroplasty. Necessary consent forms, preoperative testing and clearances will be obtained. [place]
[2018-10-26] MEDS ORDERED: FAMOTIDINE 20 MG TAB PO SCH (06:00)
[2018-10-26] MEDS ORDERED: TRANEXAMIC ACID 1,000 MG **IV Pre-op IV SCH (06:00)
[2018-10-26] MEDS ORDERED: LR 15ML/HR IV SCH (06:00)
[2018-10-26] MEDS ORDERED: GABAPENTIN 300 MG x 2 PO SCH (06:00)
[2018-10-26] MEDS ORDERED: CEFAZOLIN 2000MG 2,000 MG/15 ML SYR IV SCH (06:00)
[2018-10-26] MEDS ORDERED: dexAMETHasone 4 MG TAB PO SCH (06:00)
[2018-10-26] MEDS ORDERED: ACETAMINOPHEN 500 MG TAB PO SCH (06:00)
[2018-10-26] MEDS ORDERED: ROPIVACAINE 0.5% HCL/PF 150 MG, BUPIVACAINE 0.5% MPF 30 ML, EPINEPHrine 30MG/30ML (OR U... INFIL SCH (06:00)
[2018-10-26] MEDS ORDERED: METOCLOPRAMIDE HCL 10 MG TABLET PO SCH (06:00)
[2018-10-26] MEDS ORDERED: ROPIVACAINE 0.5% 5 MG/ML 30 ML VIAL ONE (06:27)
[2018-10-26] MEDS ORDERED: BUPIVACAINE 0.5 % 5 MG/1 ML PF 10ML VIAL ONE (06:27)
[2018-10-26] MEDS ORDERED: EPINEPHrine INJ 1 MG/ML AMP ONE (06:28)
[2018-10-26] MEDS ORDERED: TRANEXAMIC ACID 1,000 MG **IV Intra-op IV SCH (06:30)
[2018-10-26] MEDS ORDERED: MIDAZOLAM HCL 1 MG/ML 2ML VIAL ONE ×2 (06:35)
[2018-10-26] MEDS ORDERED: fentaNYL citrate 100 MCG/2 ML VIAL ONE ×3 (06:35→07:43)
[2018-10-26] MEDS ORDERED: ORTHO JOINT ANESTHETIC ONE (06:36)
[2018-10-26] MEDS ORDERED: POVIDONE-IODINE OP SOLN 30 ML BTL ONE (06:36)
[2018-10-26] MEDS ORDERED: BACITRACIN INJ 50,000 UNIT VIAL ONE (06:36)
--- NOTE | 2018-10-26 06:57 | History & Physical Bridge Note ---
Date of Service October 26, 2018 History & Physical Bridge Note I have examined the patient, reviewed the History & Physical and in the interval since the performance of the History & Physical I have noted the following changes of clinical significance: no changes noted
[2018-10-26] MEDS ORDERED: ONDANSETRON INJ 2 MG/ML 2 ML VIAL ONE (07:56)
[2018-10-26] MEDS ORDERED: DEXAMETHASONE SOD INJ 4 MG/ML VIAL ONE (07:56)
[2018-10-26] MEDS ORDERED: PROPOFOL IV EMULSION 10 MG/ML 20 ML VIAL IV ONE (07:56)
[2018-10-26] MEDS ORDERED: LIDOCAINE HCL 2% 2 ML VIAL/AMP(20MG/ML) INFIL ONE (07:56)
[2018-10-26] MEDS ORDERED: HYDROmorphone INJ 2 MG/ML SYR/VIAL ONE (08:02)
--- NOTE | 2018-10-26 09:14 | Operative Report ---
Post Operative Report Pre & Post Diagnosis Operation Date: 10/26/18 07:00 Pre-Op Diagnosis: Right Knee End-stage osteoarthritis, obesity Post-Op Diagnosis: Right Knee End-stage osteoarthritis, obesity Procedure Operation Date: 10/26/18 07:00 Actual Procedures p Right Total Knee Arthroplasty(Right), superficial wound VAC- Juan M Toribio MD Surgeon Juan M Toribio MD Truck Repair Supervisor Pan MEJIA Estimated Blood Loss 5 Findings Consistent with Post-Op Diagnosis Specimens Bone cuts Drains 2 Hemovac Anesthesia Type General Regional Complications none Disposition Accompanied Patient To Recovery: No Disposition: Recovery Room Indications 63-year-old female with chronic progressive osteoarthritis right knee with a valgus knee valgus deformity qatr-np-xykq lateral compartment. Prior successful left knee replacement Description of Procedure Patient taken to the operating room placed supine on the operating table and anesthetized under general with regional block anesthesia. Exam under anesthesia demonstrated 0 through 125 degrees range of motion with a fixed valgus deformity of her knee and MCL laxity. There is no pseudolaxity or any give with varus stress with very tight lateral compartment. She had obesity the thigh and knee. A pneumatic tourniquet was placed about the upper obese thigh of the right lower extremity. The right lower extremity was prepped and draped in usual fashion. Leg was elevated exsanguinated with an Esmarch bandage and the pneumatic was raised to 350 mm mercury. An anterior incision was made across the right knee. The skin was incised longitudinally subcutaneous flaps were elevated. Patient has some thickened prepatellar bursitis and scar tissue from previous arthroscopic surgery. An incision was made through the medial retinaculum extending up into the mid third of the quadriceps tendon and extended down to the medial tibial tubercle. Intra-articular findings demonstrated a valgus knee igde-pg-jsvz of the lateral compartment. The knee was exposed by excising the infrapatellar fat pad, excising the meniscal remnants and cruciate ligaments. Any inflamed synovial tissue was resected. The fat pad over the anterior femur was resected for placement of the component in that area. The lateral synovial bands were release. Appropriate releases were performed to balance ligaments. The femur was exposed. The custom femoral cutting block was pinned in position. The distal femoral cutting block was applied. The distal femoral cut was made with the oscillating saw. The size 9 4-in-1 cutting block was placed. The anterior and posterior chamfer cuts were made. The knee was extended and a subperiosteal peel lateral release was performed around the patella. The patella width was measured and width was reproduced using freehand cut technique. The 32 x 8.5 millimeter symmetrical patella was used. 3 drill holes are made for the pegs. The tibia was exposed. A custom tibial cutting block was positioned and drill holes were made for the cutting guide. Cutting guide was placed and the proximal cut was made with the oscillating saw. All osteophytes were resected. The lamina infectious disease technician was used to assess ligamentous balance and the ligaments were balanced in extension and flexion. This required lateral capsular release posterior lateral capsule release IT band release of the tibia. The tibia was reexposed and measured for a size E tibial component. This was externally rotated in line with the tibial tubercle and the fixation pins were drilled. The proximal tibia was fashioned with the drill and punch. The size 9 femoral trial was inserted. The trial MC inserts were used. The 11 mm insert gave the best balance of ligaments through full range of motion. There is some minor residual MCL laxity comparing the lateral but much improved from her preoperative status. The patella tracked laterally initially so I went ahead and did a lateral release leaving as much synovium intact as possible. I took the knee through range of motion and after lateral release patella tracked centrally. the trials were removed. The orthomix anesthetic cocktail was injected per protocol. The knee was then copiously irrigated with pulsatile lavage antibiotic solution with bacitracin. The final components were cemented with Simplex cement. The final components were 9 narrow CR [employer] persona femoral component right, E tibial component, 11 mm MC tibial bearing, 32 x 8.5 symmetrical patella. While the cement cured with the knee in full extension the Betadine soak was used per protocol. After the cement cured, the knee joint was copiously irrigated with antibiotic solution with bacitracin. 2 drains were brought out laterally and connected to a Hemovac. The quadriceps tendon and medial retinaculum were closed with interrupted ickiyk-xm-ehbuq #1 Vicryl sutures. The knee was taken through a full range of motion and repair was secure. The subcutaneous tissues were closed with 2-0 Vicryl sutures and skin was closed with anibal. A [place]peranza superficial wound VAC was applied and the patient tolerated the procedure well. Pan MEJIA my physician technical assistant, assisted in soft tissue retraction instrument management leg positioning the closure and application of wound VAC and will participate in the postoperative care of the patient. I attest to the content of the Intraoperative Record and any orders documented therein. Any exceptions are noted below.
[2018-10-26] MEDS ORDERED: LABETALOL HCL IV 5 MG/ML 20ML IV PRN (09:41)
[2018-10-26] MEDS ORDERED: PROMETHAZINE HCL 12.5 MG in SODIUM CHLORIDE 0.9% 50 ML IV PRN (09:41)
[2018-10-26] MEDS ORDERED: FLUMAZENIL 0.1 MG/1 ML 10 ML VIAL IV PRN (09:41)
[2018-10-26] MEDS ORDERED: ePHEDrine sulfate 50 MG/ML AMP IV PRN (09:41)
[2018-10-26] MEDS ORDERED: ATROPINE SULFATE 0.1 MG/ML 10ML SYR IV PRN (09:41)
[2018-10-26] MEDS ORDERED: ONDANSETRON INJ 2 MG/ML 2 ML VIAL IV PRN ×2 (09:41→11:03)
[2018-10-26] MEDS ORDERED: NALOXONE HCL 0.4 MG/1 ML VIAL/CARP IV PRN ×2 (09:41→11:03)
[2018-10-26] MEDS ORDERED: HYDROmorphone INJ 0.5 MG/0.5 ML SYR ONE (09:50)
[2018-10-26] MEDS: HYDROmorphone INJ 1 MG/ML SYRINGE IV PRN ×4 (09:52→10:10)
--- NOTE | 2018-10-26 10:23 | XRay Report ---
XR knee RT 2V routine CLINICAL HISTORY: Surgical Post Op COMPARISON: None. DISCUSSION: Anatomic alignment post total right knee arthroplasty. Good contact between prosthetic an d underlying bone. Soft tissue changes postoperative basis considered unremarkable. IMPRESSION: Anatomic alignment post total right knee arthroplasty. The above report was generated using voice recognition software. It may contain grammatical, syntax or spelling errors. Electronically signed by: Pan Angeles M.D. 10/26/2018 10:22 AM
--- NOTE | 2018-10-26 10:39 | Anesthesiology Progress Note ---
Date of Service October 26, 2018 Anesthesia Post Procedure Vital Signs Vital Signs: Temp Pulse Pulse Resp BP BP Pulse Ox 10/26/18 10:35 83 18 126/73 100 10/26/18 10:25 36.3 C L 77 18 140/79 98 10/26/18 10:15 79 18 150/79 H 97 10/26/18 10:05 85 18 117/90 98 10/26/18 09:55 81 18 145/82 H 97 10/26/18 09:45 89 18 146/86 H 98 10/26/18 09:35 89 18 144/72 H 98 10/26/18 09:29 36.2 C L 96 H 12 107/75 94 10/26/18 05:35 36.6 C 71 20 137/90 98 Pain Intensity Right Knee: Pain Intensity: 4 Notes Mental Status: alert / awake / arousable Patient Amnestic to Procedure: Yes Nausea / Vomiting: adequately controlled Pain: adequately controlled Airway Patency, RR, SpO2: stable & adequate BP & HR: stable & adequate Hydration State: stable & adequate Anesthetic Complications: no major complications apparent
[2018-10-26] MEDS ORDERED: BUTALBITAL/ACETAMIN/CAFFEINE TAB PO PRN (11:03)
[2018-10-26] MEDS ORDERED: BISACODYL 10 MG SUPP PR PRN (11:03)
[2018-10-26] MEDS ORDERED: SUMAtriptan succinate 100 MG TAB PO PRN (11:03)
[2018-10-26] MEDS ORDERED: FUROSEMIDE 40 MG TAB PO PRN (11:03)
[2018-10-26] MEDS ORDERED: NO NSAIDS SCH (11:03)
[2018-10-26] MEDS ORDERED: CYCLOBENZAPRINE HCL 5 MG TAB PO PRN (11:03)
[2018-10-26] MEDS ORDERED: ALBUTEROL HFA 8 GM INHALER INH PRN (11:03)
[2018-10-26] MEDS ORDERED: MAGNESIUM HYDROXIDE SUSP 30 ML UDC PO PRN (11:03)
[2018-10-26] MEDS ORDERED: predniSONE 5 MG TAB PO PRN (11:03)
[2018-10-26] MEDS: OXYCODONE HCL IR 5 MG TAB (IMMEDIATE RELEASE) PO PRN ×3 (12:38→21:51)
[2018-10-26] MEDS: SODIUM CHLORIDE 0.9% 1000ML 1,000 ML IV SCH ×2 (12:43→21:53)
--- NOTE | 2018-10-26 12:53 | Consultation ---
Date of Consultation October 26, 2018 Assessment & Plan (1) S/P total knee arthroplasty: This is a 63-year-old female with a PMH of asthma, depression, chronic back pain, prediabetes, h/o migraines and osteoarthritis who is POD#0 s/p R knee TKA by Dr. Toribio. -POD#0 s/p R TKA with Dr. Toribio -Pt is doing well post-operatively -Per ortho for pain control, wound care, anticoagulation and activities -Monitor H&H (EBL: 5 ml, drain output: 30 ml), pre-op hgb of 11.2 -Continue incentive spirometry, PT/OT when appropriate (2) Prediabetes: Pre-op hgb of 5.7 -Given PO dexamethasone prior to surgery -Carb consistent diet -Add SSI if indicated (3) Asthma: Stable. Continue albuterol inhaler PRN (4) Migraine: No headache currently -Fioricet, Imitrex PRN (5) Depression: Stable. Continue Cymbalta (6) Degenerative disc disease: Home dose Percocet held while receiving pain medication from primary service (7) Muscle spasms of neck: Flexeril 10mg HS PRN (8) Insomnia: Continue Trazodone -Patient concerned about sleep. Hesitant to add additional sedating agents since receiving pain medication -Will add PRN agent if needed PCP: Rogelio Dispo: Per primary service Patient seen in collaboration with Dr. Childs. Please see addendum. Attending Addendum: delayed entry date of service noted above care coordinated with ROBERTO Pizano's notes please refer to her notes for full details, I agree with her notes patient seen and examined, records reviewed by myself as well on exam, patient seen resting in bed pain well controlled no other symptoms VS noted and reviewed oriented x3, not in distress, speaks in sentences with no effort nor accessory muscle use normal rate, regular rhythm, no murmurs clear breath sounds bilaterally non distended, soft, nontender R knee: dressing in place mild lower leg edema, erythema, warmth no neuro deficits ASSESSMENT AND PLAN s/p R knee surgery stable overall pain management per Ortho Asthma stable Migraine stable other diagnoses and plan of care as per ROBERTO Pizano's notes Shelton Childs MD History of Present Illness Reason for Consultation: This is a 63-year-old female with a PMH of asthma, depression, chronic back pain, prediabetes, h/o migraines and osteoarthritis who is POD#0 s/p R knee TKA by Dr. Toribio. Patient is doing well postoperatively. Endorsing some surgical site pain at right knee. No numbness or paresthesias distal to right knee. Denies any fever, chills, lightheadedness, headache, chest pain, palpitations, shortness of breath, nausea, vomiting, abdominal pain, dysuria, diarrhea or constipation. Has already urinated postoperatively without issue. Last BM was yesterday. Has history of multiple orthopedic surgeries as well as gastric bypass 15 years ago. PCP is Dr. Mercado. Attending Physician: Juan M Toribio MD Allergies Allergy/AdvReac Type Severity Reaction Status Date / Time NSAIDS (Non-Steroidal Allergy Unknown ANAPHYLAXIS Verified 10/26/18 05:32 Anti-Inflamma Home Medications Home Medications Medication Instructions Recorded Confirmed Type albuterol sulfate 2 puff INHALATION QID PRN 09/12/18 09/12/18 History cwoeqqfcgn-ujjgzvbthcbwx-cjnj 1 cap PO Q4H PRN 09/12/18 10/26/18 History [Fioricet] cyclobenzaprine 5 mg PO TID PRN 09/12/18 10/26/18 History duloxetine [Cymbalta] 60 mg PO HS 09/12/18 10/26/18 History furosemide 40 mg PO QAM PRN 09/12/18 09/12/18 History oxycodone-acetaminophen 1 tab PO Q6H PRN 09/12/18 10/26/18 History prednisone 5 mg PO UD PRN 09/12/18 09/12/18 History sumatriptan succinate 100 mg PO UD PRN 09/12/18 09/12/18 History topiramate 200 mg PO QAM 09/12/18 10/26/18 History trazodone 50 mg PO HS 09/12/18 10/26/18 History Patient History Medical History Muscle spasms of neck (Chronic) Prediabetes (Chronic) Depression (Chronic) Obesity (Chronic) Asthma (Chronic) WELL CONTROLLED Migraine (Chronic) Degenerative disc disease (Chronic) Arachnoiditis (Chronic) PT STATES SHE TAKES A PRN PREDNISONE TAPER FOR "FLARE UPS"--these happen randomly. Per pt thought to have been caused by first spine surgery ~35yrs ago. Flare ups include severe lower extremity pain and numbness. Surgical History S/P total knee arthroplasty (Acute) Fusion of spine (Resolved) 2 LEVEL CERVICAL FUSION, 1 LUMBAR (2 LEVEL) FUSION 11/2017. 2 PREVIOUS C-SPINE AND LUMBAR SURGERIES (NOT FUSIONS) History of arthroscopic knee surgery (Resolved) History of bilateral oophorectomy (Resolved) RIGHT History of bilateral tubal ligation (Resolved) History of carpal tunnel release (Resolved) History of gastric bypass (Resolved) History of shoulder surgery (Resolved) LEFT RCR, AND IMANI PROCEDURE History of total knee replacement (Resolved) LEFT. PT BELIEVES THIS WAS DONE WITH GENERAL ANESTHESIA, ~10 YRS AGO. H/O elbow surgery (Resolved) Social History Preferred Language: Urdu Communication Ability: Effective Systems Specialist Required: No Beliefs That Will Affect Care: None Current Living Situation: Alone Other Information That Helps Us Care for You: No Feels Safe at Home: Yes Safety Concerns: Feels Safe At This Time Smoking Status: Never smoker Do You Dip or Chew Tobacco: No Second Hand Exposure: No Tobacco Cessation Education Requested by Patient: No Hx Alcohol Use: Yes Hx Substance Use: No Review of Systems Review of Systems: At least ten systems reviewed and negative except as noted in the HPI. Physical Exam Physical Exam: General Appearance: WD/WN, no apparent distress, resting comfortably Head: normocephalic, atraumatic Eyes: normal inspection, PERRL, EOMI ENT: hearing grossly normal, pharynx normal (moist mucous membranes) Neck: supple, no JVD, no adenopathy Respiratory/Chest: lungs clear to auscultation. No wheezes, rales or rhonci. No respiratory distress or accessory muscle use Cardiovascular: regular rate, rhythm, no murmur, normal peripheral pulses Abdomen/GI: normal bowel sounds, soft, non-tender to palpation Extremities/Musculoskelatal: R knee with surgical dressing in place, clean/dry/intact. Drain visualized. Normal capillary refill, no pedal edema Neurologic/Psych: alert, normal mood/affect, oriented x 3. Strength and sensation intact. Skin: normal color, warm/dry Results & Data Vital Signs (Past 12 Hours) Vital Signs Temp Pulse Pulse Pulse Resp BP BP 10/26/18 11:50 36.7 C 73 15 152/90 H 10/26/18 11:20 36.4 C L 75 17 124/77 10/26/18 10:50 36.6 C 78 14 129/79 10/26/18 10:35 83 18 126/73 10/26/18 10:25 36.3 C L 77 18 140/79 10/26/18 10:15 79 18 150/79 H 10/26/18 10:05 85 18 117/90 10/26/18 09:55 81 18 145/82 H 10/26/18 09:45 89 18 146/86 H 10/26/18 09:35 89 18 144/72 H 10/26/18 09:29 36.2 C L 96 H 12 107/75 10/26/18 05:35 36.6 C 71 20 137/90 Pulse Ox 10/26/18 11:50 100 10/26/18 11:20 100 10/26/18 10:50 99 10/26/18 10:35 100 10/26/18 10:25 98 10/26/18 10:15 97 10/26/18 10:05 98 10/26/18 09:55 97 10/26/18 09:45 98 10/26/18 09:35 98 10/26/18 09:29 94 10/26/18 05:35 98 Laboratory Results Pertinent pre-op labs: Hgb: 11.2 Cr: 0.70 GFR: 92.9 A1c: 5.7
[2018-10-26] MEDS: CEFAZOLIN 2000MG 2,000 MG/15 ML SYR IV SCH ×2 (14:16→22:07)
[2018-10-26] MEDS: ACETAMINOPHEN 500 MG TAB PO SCH ×2 (14:16→21:52)
[2018-10-26] MEDS: HYDROmorphone INJ 0.5 MG/0.5 ML SYR IV PRN ×3 (16:00→23:34)
[2018-10-26] MEDS: SENNA 8.6 MG TAB PO SCH (20:48)
[2018-10-26] MEDS: DOCUSATE SODIUM 100 MG CAP PO SCH (20:48)
[2018-10-26] MEDS: DULOXETINE HCL 60 MG CAP PO SCH (20:48)
[2018-10-26] MEDS: TRAZODONE HCL 50 MG TAB PO SCH (20:48)
[2018-10-27] MEDS: OXYCODONE HCL IR 5 MG TAB (IMMEDIATE RELEASE) PO PRN ×5 (02:25→21:49)
[2018-10-27] MEDS: HYDROmorphone INJ 0.5 MG/0.5 ML SYR IV PRN ×4 (03:57→18:14)
[2018-10-27 05:32] LABS: Hematocrit (blood only) 31.2 % (37-47); Mean Corpuscular Hgb Conc 32.1 g/dL (32-36); Mean Corpuscular Volume 87.4 fL (80-100); Mean Platelet Volume 9.7 fL (7.4-10.4); Platelet Count 140 K/uL (130-400); RDW Coefficient of Variation 15.7 % (11.5-14.5); RDW Standard Deviation 50.5 fL (36.4-46.3); Red Blood Count 3.57 M/uL (4.2-5.4); White Blood Count 6.86 K/uL (4.8-10.8)
[2018-10-27] MEDS: ACETAMINOPHEN 500 MG TAB PO SCH ×3 (05:52→21:26)
[2018-10-27 06:05] LABS: Alanine Aminotransferase 17 U/L (12-78); Albumin Level 2.8 gm/dl (3.4-5.0); Aspartate Aminotransferase 15 U/L (15-37); BUN Creatinine Ratio 19.9 (10-20); Bilirubin Direct < 0.1 mg/dl (0-0.2); Blood Urea Nitrogen 15 mg/dl (7-18); Calcium 8.1 mg/dl (8.5-10.1); Carbon Dioxide 29 mmol/L (21-32); Chloride 109 mmol/L (98-107); Creatinine Clr Calc Pharmacy 102.1 ml/min; Est GFR (African American) 101.6; Est GFR (Non-African American) 87.7; Glucose 102 mg/dl (70-99); Potassium 3.9 mmol/L (3.5-5.1); Sodium 140 mmol/L (136-145)
[2018-10-27 06:08] LABS: Alkaline Phosphatase 75 U/L (45-117); Bilirubin,Total 0.2 mg/dl (0.2-1); Total Protein 5.8 gm/dl (6.4-8.2)
[2018-10-27] MEDS: MULTIVITAMIN TAB PO SCH (07:22)
[2018-10-27] MEDS: TOPIRAMATE 100 MG TAB PO SCH (07:22)
[2018-10-27] MEDS: DOCUSATE SODIUM 100 MG CAP PO SCH ×2 (07:22→20:36)
[2018-10-27] MEDS: RIVAROXABAN 10 MG TABLET PO SCH (07:22)
--- NOTE | 2018-10-27 07:50 | Anesthesiology Progress Note ---
Date of Service October 27, 2018 Anesthesia Post Procedure Vital Signs Vital Signs: Temp Pulse Pulse Pulse Resp BP BP 10/27/18 07:33 36.8 C 70 16 110/70 10/27/18 03:52 36.8 C 76 14 120/56 L 10/26/18 23:08 37.3 C 72 14 115/62 10/26/18 19:21 36.5 C 76 16 131/80 10/26/18 13:50 37.1 C 73 16 140/70 10/26/18 12:50 36.4 C L 78 15 137/84 10/26/18 11:50 36.7 C 73 15 152/90 H 10/26/18 11:20 36.4 C L 75 17 124/77 10/26/18 10:50 36.6 C 78 14 129/79 10/26/18 10:35 83 18 126/73 10/26/18 10:25 36.3 C L 77 18 140/79 10/26/18 10:15 79 18 150/79 H 10/26/18 10:05 85 18 117/90 10/26/18 09:55 81 18 145/82 H 10/26/18 09:45 89 18 146/86 H 10/26/18 09:35 89 18 144/72 H 10/26/18 09:29 36.2 C L 96 H 12 107/75 Pulse Ox 10/27/18 07:33 98 10/27/18 03:52 95 10/26/18 23:08 96 10/26/18 19:21 98 10/26/18 13:50 100 10/26/18 12:50 94 10/26/18 11:50 100 10/26/18 11:20 100 10/26/18 10:50 99 10/26/18 10:35 100 10/26/18 10:25 98 10/26/18 10:15 97 10/26/18 10:05 98 10/26/18 09:55 97 10/26/18 09:45 98 10/26/18 09:35 98 10/26/18 09:29 94 Pain Intensity Right Knee: Pain Intensity: 7 Notes Mental Status: alert / awake / arousable and participated in evaluation Patient Amnestic to Procedure: Yes Nausea / Vomiting: adequately controlled Pain: adequately controlled Airway Patency, RR, SpO2: stable & adequate BP & HR: stable & adequate Hydration State: stable & adequate Anesthetic Complications: no major complications apparent and Pt Satisfied with anesthetic care
--- NOTE | 2018-10-27 08:08 | Orthopedic Progress Note ---
Date of Service October 27, 2018 Assessment & Plan (1) S/P total knee arthroplasty: POD #1, Right TKA PT/ OT DVT proph- Xarelto D/C planning- Home w HH As per medicine Will add Oxycontin 10mg q12h. Subjective POD #1 pain is main issue, denies sob, cp, n/v. Physical Exam Physical Exam: Right knee dressings c/d/i, no drainage, toes and ankle mobile. No calf tenderness. A&Ox3. Results & Data Vital Signs (Past 12 Hours) Vital Signs Temp Pulse Pulse Resp BP Pulse Ox 10/27/18 07:33 36.8 C 70 16 110/70 98 10/27/18 03:52 36.8 C 76 14 120/56 L 95 10/26/18 23:08 37.3 C 72 14 115/62 96
[2018-10-27] MEDS ORDERED: OXYCODONE HCL 10 MG TABCR (OXYCONTIN) ONE (08:36)
[2018-10-27] MEDS: OXYCODONE HCL 10 MG TABCR (OXYCONTIN) PO SCH ×2 (08:42→19:30)
--- NOTE | 2018-10-27 10:52 | Hospitalist Progress Note ---
Date of Service October 27, 2018 Assessment & Plan (1) S/P total knee arthroplasty: This is a 63-year-old female with a PMH of asthma, depression, chronic back pain, prediabetes, h/o migraines and osteoarthritis who is POD#1 s/p R knee TKA by Dr. Toribio. -POD#1 s/p R TKA with Dr. Toribio -Pt is doing well post-operatively -Per ortho for pain control, wound care, anticoagulation and activities -Monitor H&H: Hgb of 10 today (pre-op hgb of 11.2). CBC tomorrow -Continue incentive spirometry, PT/OT (2) Prediabetes: Pre-op hgb of 5.7 -Carb consistent diet (3) Asthma: Stable. Continue albuterol inhaler PRN (4) Migraine: No headache currently -Fioricet, Imitrex PRN (5) Depression: Stable. Continue Cymbalta (6) Degenerative disc disease: Home dose Percocet resumed, per primary service (7) Muscle spasms of neck: Flexeril 10mg HS PRN (8) Insomnia: Continue Trazodone -Patient concerned about sleep. Hesitant to add additional sedating agents since receiving pain medication -Will add PRN agent if needed PCP: Rogelio Dispo: Per primary service Patient seen in collaboration with Dr. Childs. Please see addendum. Attending Addendum: delayed entry date of service care coordinated with ROBERTO Pizano please refer to her notes for full details, I agree with her notes patient seen and examined, records reviewed by myself as well on exam, patient seen resting in bed states R knee pain is increased no other symptoms VS noted and reviewed oriented x 3, not in distress, speaks in sentences with no effort nor accessory muscle use normal rate, regular rhythm, no murmurs clear breath sounds bilaterally non distended, soft, nontender r knee: heavy dressing and drain in place trace lower leg edema, erythema, warmth no neuro deficits Hg 10 Crea 0.73 ASSESSMENT AND PLAN s/p R knee surgery stable overall monitor Hg Asthma stable Migraine stable other diagnoses and plan of care as per ROBERTO Pizano's notes Shelton Childs MD Subjective Patient seen and examined, resting comfortably. Still experiencing surgical site pain. Pain regimen adjusted by orthopedics this morning. Urinating without issue. Passing flatus, no BM yet. Had difficulty sleeping last night. No fever, chills, lightheadedness, headache, chest pain, palpitations, shortness of breath, nausea, abdominal pain or dysuria. Review of Systems Review of Systems: At least ten systems reviewed and negative except as noted in the HPI. Physical Exam Physical Exam: General Appearance: WD/WN, no apparent distress, sitting in bedside recliner eating breakfast Head: normocephalic, atraumatic Eyes: normal inspection, PERRL, EOMI ENT: hearing grossly normal, pharynx normal (moist mucous membranes) Neck: supple, no JVD, no adenopathy Respiratory/Chest: lungs clear to auscultation. No wheezes, rales or rhonci. No respiratory distress or accessory muscle use Cardiovascular: regular rate, rhythm, no murmur, normal peripheral pulses Abdomen/GI: normal bowel sounds, soft, non-tender to palpation Extremities/Musculoskelatal: R knee with surgical dressing in place, clean/dry/intact. Drain visualized. Normal capillary refill, no pedal edema Neurologic/Psych: alert, normal mood/affect, oriented x 3. Strength and sensation intact. Skin: normal color, warm/dry Results & Data Vital Signs (Past 12 Hours) Vital Signs Temp Pulse Pulse Resp BP Pulse Ox 10/27/18 07:33 36.8 C 70 16 110/70 98 10/27/18 03:52 36.8 C 76 14 120/56 L 95 10/26/18 23:08 37.3 C 72 14 115/62 96
[2018-10-27] MEDS: SENNA 8.6 MG TAB PO SCH (20:36)
[2018-10-27] MEDS: DULOXETINE HCL 60 MG CAP PO SCH (20:36)
[2018-10-27] MEDS: TRAZODONE HCL 50 MG TAB PO SCH (20:36)
[2018-10-28] MEDS: HYDROmorphone INJ 0.5 MG/0.5 ML SYR IV PRN ×2 (00:13→18:50)
[2018-10-28] MEDS: OXYCODONE HCL IR 5 MG TAB (IMMEDIATE RELEASE) PO PRN ×5 (01:35→23:25)
[2018-10-28] MEDS: ACETAMINOPHEN 500 MG TAB PO SCH ×3 (06:03→21:34)
[2018-10-28 06:23] LABS: Hematocrit (blood only) 31.8 % (37-47); Hemoglobin 10.1 g/dL (12.0-16.0); Mean Corpuscular Hgb Conc 31.8 g/dL (32-36); Mean Corpuscular Volume 87.1 fL (80-100); Mean Platelet Volume 9.8 fL (7.4-10.4); Platelet Count 145 K/uL (130-400); RDW Coefficient of Variation 15.8 % (11.5-14.5); RDW Standard Deviation 50.7 fL (36.4-46.3); Red Blood Count 3.65 M/uL (4.2-5.4); White Blood Count 5.48 K/uL (4.8-10.8)
[2018-10-28 06:56] LABS: BUN Creatinine Ratio 17.1 (10-20); Creatinine Clr Calc Pharmacy 112.9 ml/min; Potassium 4.1 mmol/L (3.5-5.1)
[2018-10-28] MEDS: OXYCODONE HCL 10 MG TABCR (OXYCONTIN) PO SCH ×2 (07:25→20:36)
[2018-10-28] MEDS: TOPIRAMATE 100 MG TAB PO SCH (07:25)
[2018-10-28] MEDS: RIVAROXABAN 10 MG TABLET PO SCH (07:25)
[2018-10-28] MEDS: MULTIVITAMIN TAB PO SCH (07:26)
[2018-10-28] MEDS: DOCUSATE SODIUM 100 MG CAP PO SCH ×2 (07:26→20:36)
--- NOTE | 2018-10-28 07:54 | Orthopedic Progress Note ---
Date of Service October 28, 2018 Assessment & Plan (1) S/P total knee arthroplasty: POD #1, Right TKA PT/ OT DVT proph- Xarelto D/C planning- Home w HH As per medicine Will add Oxycontin 10mg q12h. Subjective Patient seen and examined, resting comfortably. Still experiencing surgical site pain. Pain regimen adjusted by orthopedics this morning. Urinating without issue. Passing flatus, no BM yet. Had difficulty sleeping last night. No fever, chills, lightheadedness, headache, chest pain, palpitations, shortness of breath, nausea, abdominal pain or dysuria. Results & Data Vital Signs (Past 12 Hours) Vital Signs Temp Pulse Resp BP Pulse Ox 10/27/18 23:22 37.6 C H 84 14 135/74 94
--- NOTE | 2018-10-28 07:59 | Orthopedic Progress Note ---
Date of Service October 28, 2018 Assessment & Plan (1) S/P total knee arthroplasty: POD #2, Right TKA PT/ OT DVT proph- Xarelto D/C planning- Home w Wednesday due to pain control. As per medicine Subjective POD #2, States pain is better but still a factor with her therapy. Denies sob, cp, n/v. Physical Exam Physical Exam: Right knee prevena in tact, toes and ankle mobile, no calf tenderness, A&Ox3. Results & Data Vital Signs (Past 12 Hours) Vital Signs Temp Pulse Resp BP Pulse Ox 10/27/18 23:22 37.6 C H 84 14 135/74 94
--- NOTE | 2018-10-28 11:17 | Hospitalist Progress Note ---
Date of Service October 28, 2018 Assessment & Plan (1) S/P total knee arthroplasty: This is a 63-year-old female with a PMH of asthma, depression, chronic back pain, prediabetes, h/o migraines and osteoarthritis who is POD#2 s/p R knee TKA by Dr. Toribio. -POD#2 s/p R TKA with Dr. Toribio -Pt is doing well post-operatively -Per ortho for pain control, wound care, anticoagulation and activities -Monitor H&H: Hgb of 10 unchanged since yesterday -Continue incentive spirometry, PT/OT -Primary service plans for discharge home tomorrow with home PT (2) Prediabetes: Pre-op hgb a1c of 5.7 -Carb consistent diet (3) Asthma: Stable. Continue albuterol inhaler PRN (4) Migraine: No headache currently -Fioricet, Imitrex PRN (5) Depression: Stable. Continue Cymbalta (6) Degenerative disc disease: Home dose Percocet resumed, per primary service (7) Muscle spasms of neck: Flexeril 10mg HS PRN (8) Insomnia: Continue Trazodone PCP: Rogelio Dispo: Per primary service Patient seen in collaboration with Dr. Childs. Please see addendum. Attending Addendum: care coordinated with ROBERTO Pizano please refer to her notes for full details, I agree with her notes patient seen and examined, records reviewed by myself as well on exam, patient seen resting in bed, comfortable states pain is more controlled no other symptoms VS noted and reviewed oriented x3, not in distress, speaks in sentences with no effort nor accessory muscle use normal rate, regular rhythm, no murmurs clear breath sounds bilaterally non distended, soft, nontender R knee: wound vac in place; mild lower leg edema, erythema, warmth no neuro deficits WBC 5.4 Hg 10.1 Crea 0.66 ASSESSMENT AND PLAN s/p R knee surgery stable overall continue pain controll Asthma stable Migraine stable other diagnoses and plan of care as per ROBERTO Pizano's notes Shelton Childs MD Subjective Patient seen and examined after PT. Pain is improving but still there. Slept better last night. No lightheadedness, headache, chest pain, shortness of breath, nausea, vomiting or abdominal pain. +flatus, no BM yet. Drain was removed. Primary service planning to discharge home tomorrow with home health. Review of Systems Review of Systems: At least ten systems reviewed and negative except as noted in the HPI. Physical Exam Physical Exam: General Appearance: WD/WN, no apparent distress Head: normocephalic, atraumatic Eyes: normal inspection, PERRL, EOMI ENT: hearing grossly normal, pharynx normal (moist mucous membranes) Neck: supple, no JVD, no adenopathy Respiratory/Chest: lungs clear to auscultation. No wheezes, rales or rhonci. No respiratory distress or accessory muscle use Cardiovascular: regular rate, rhythm, no murmur, normal peripheral pulses Abdomen/GI: normal bowel sounds, soft, non-tender to palpation Extremities/Musculoskelatal: R knee with surgical dressing in place with wound VAC. Pulses and strength intact. Neurologic/Psych: alert, normal mood/affect, oriented x 3 Skin: normal color, warm/dry Results & Data Vital Signs (Past 12 Hours) Vital Signs Temp Pulse Pulse Resp BP Pulse Ox 10/28/18 08:00 37.0 C 68 17 132/88 99 10/27/18 23:22 37.6 C H 84 14 135/74 94
[2018-10-28] MEDS: TRAZODONE HCL 50 MG TAB PO SCH (20:36)
[2018-10-28] MEDS: SENNA 8.6 MG TAB PO SCH (20:36)
[2018-10-28] MEDS: DULOXETINE HCL 60 MG CAP PO SCH (20:36)
[2018-10-29] MEDS: OXYCODONE HCL IR 5 MG TAB (IMMEDIATE RELEASE) PO PRN ×2 (04:47→13:01)
[2018-10-29 06:17] LABS: Hematocrit (blood only) 29.8 % (37-47); Hemoglobin 9.4 g/dL (12.0-16.0); Mean Corpuscular Hgb Conc 31.5 g/dL (32-36); Mean Corpuscular Volume 86.9 fL (80-100); Mean Platelet Volume 9.8 fL (7.4-10.4); Platelet Count 142 K/uL (130-400); RDW Coefficient of Variation 15.7 % (11.5-14.5); RDW Standard Deviation 50.2 fL (36.4-46.3); Red Blood Count 3.43 M/uL (4.2-5.4); White Blood Count 4.82 K/uL (4.8-10.8)
[2018-10-29] MEDS: ACETAMINOPHEN 500 MG TAB PO SCH (06:31)
[2018-10-29 06:48] LABS: BUN Creatinine Ratio 17.4 (10-20); Calcium 8.7 mg/dl (8.5-10.1); Creatinine Clr Calc Pharmacy 120.2 ml/min; Est GFR (African American) 111.2; Potassium 3.9 mmol/L (3.5-5.1)
[2018-10-29] MEDS: TOPIRAMATE 100 MG TAB PO SCH (07:36)
[2018-10-29] MEDS: DOCUSATE SODIUM 100 MG CAP PO SCH (07:36)
[2018-10-29] MEDS: OXYCODONE HCL 10 MG TABCR (OXYCONTIN) PO SCH (07:36)
[2018-10-29] MEDS: MULTIVITAMIN TAB PO SCH (07:36)
[2018-10-29] MEDS: RIVAROXABAN 10 MG TABLET PO SCH (07:36)
--- NOTE | 2018-10-29 07:53 | Orthopedic Progress Note ---
Date of Service October 29, 2018 Assessment & Plan (1) Status post right knee replacement: 63 yo female stable POD #3 s/p right TKA 1. Med management 2. DVT prophylaxis- Xarelto, SCDs 3. PT/OT 4. D/C planning- home w/ HH Subjective Pt resting in bed, pain better controlled, denies complaints Physical Exam Physical Exam: Toes mobile, N/V/I, Prevena dressing in place Results & Data Vital Signs (Past 12 Hours) Vital Signs Temp Pulse Pulse Resp BP Pulse Ox 10/29/18 06:34 36.6 C 73 16 123/77 96 10/28/18 23:10 37.5 C 81 16 122/70 96
--- NOTE | 2018-11-09 10:54 | Discharge Summary ---
CHIEF COMPLAINT: Chronic right knee pain. HISTORY OF PRESENT ILLNESS: This is a 62-year-old female patient of Dr. Toribio's complaining of chronic right knee pain, longstanding, now progressively getting worse. The patient has failed conservative treatment and was diagnosed with end-stage osteoarthritis per clinical and radiographic exams. The patient elected to proceed with a right total knee arthroplasty. PAST MEDICAL HISTORY: Asthma, peripheral neuropathy, osteoarthritis, spine problems, and neck problems. POSTOPERATIVE COURSE: The patient underwent a right total knee arthroplasty on 10/26/2018. She was followed closely with medical consultation, DVT prophylaxis in the form of Xarelto, physical therapy and pain control. Main issue postoperative day #1 and #2 was pain control. We did add OxyContin 10 mg every 12 hours to her regimen. By postoperative day 3, her pain was controlled well. Otherwise, an uneventful postoperative course. The patient was discharged home on postoperative day #3. PHYSICAL EXAMINATION: On discharge, right knee Prevena dressing was clean, dry and intact. Suction was being held adequately. There was no redness or drainage. She had no calf tenderness. Negative Homans sign. Her toes and ankle were mobile. Neurologically and neurovascularly, she was intact in her right lower extremity. DIAGNOSES: Status post right total knee arthroplasty with application of superficial wound VAC. She also has a history of asthma, peripheral neuropathy, osteoarthritis, spine problems, and neck problems. PLAN: The patient was discharged home with home health services. She will continue her preadmission medications with the addition of Xarelto for DVT prophylaxis and pain medications. She will follow up with Dr. Toribio as scheduled as an outpatient.
== END 2018-10-29 13:33 | disposition home health service (06) | DRG 470 ==
LOC: ASU 05:02 → 3E 11:01

== ENCOUNTER 2024-08-25 07:36 | Observation (INO) ==
--- NOTE | 2024-07-26 13:21 | PAT Medication Instructions ---
Medication Instructions Date of Service July 26, 2024 Home Medications Medication Instructions Recorded oxycodone 5 mg tablet 5 mg PO Q4H PRN pain #15 tabs 12/25/18 Medication List: albuterol sulfate 90 mcg/actuation aerosol inhaler 2 puff inhalation QID PRN Wheezing duloxetine 60 mg capsule,delayed release (Cymbalta) 60 mg PO HS furosemide 40 mg tablet 40 mg PO QAM PRN Edema prednisone 5 mg tablet 5 mg PO UD PRN arachnoiditis topiramate 200 mg capsule,extended release 24 hr 200 mg PO QAM trazodone 50 mg tablet 50 mg PO HS acetaminophen 500 mg tablet (Tylenol Extra Strength) 500 mg PO Q6H PRN Pain oxycodone 5 mg tablet 5 mg PO Q4H PRN pain bgnxlijdwb-vlxbljokivirq-stdtkgof 50 mg-325 mg-40 mg tablet 1 tab PO Q4H PRN Headache calcium 315 mg (as citrate)-vitamin D3 6.25 mcg (250 unit) tablet 1 tab PO QAM ergocalciferol (vitamin D2) 1,250 mcg (50,000 unit) capsule (Vitamin D2) 1,250 mcg PO WK magnesium oxide 500 mg PO DAILY phentermine 37.5 mg tablet 37.5 mg PO QAM promethazine 25 mg tablet 25 mg PO Q6H PRN Nausea rimegepant 75 mg disintegrating tablet (Nurtec ODT) 75 mg PO 3XWK tretinoin 0.05 % topical cream 1 applic topical HS vitamin B complex 1 tab PO DAILY zinc 50 mg tablet 50 mg PO DAILY MEDICATION INSTRUCTIONS: Continue as directed albuterol sulfate 90 mcg/actuation aerosol inhaler 2 puff inhalation QID PRN Wheezing (use if needed; BRING TO HOSPITAL) tretinoin 0.05 % topical cream 1 applic topical HS (do not apply after bathing prior to surgery) rimegepant 75 mg disintegrating tablet (Nurtec ODT) 75 mg PO 3XWK prednisone 5 mg tablet 5 mg PO UD PRN arachnoiditis (please let anesthesia know if this is being taken prior to surgery) DO NOT take the morning of surgery furosemide 40 mg tablet 40 mg PO QAM PRN Edema calcium 315 mg (as citrate)-vitamin D3 6.25 mcg (250 unit) tablet 1 tab PO QAM ergocalciferol (vitamin D2) 1,250 mcg (50,000 unit) capsule (Vitamin D2) 1,250 mcg PO WK magnesium oxide 500 mg PO DAILY vitamin B complex 1 tab PO DAILY zinc 50 mg tablet 50 mg PO DAILY bznutioibq-miiphhsnrhlko-qibhkbks 50 mg-325 mg-40 mg tablet 1 tab PO Q4H PRN Headache Take morning of surgery With a small sip of water, OTHERWISE NOTHING TO EAT OR DRINK AFTER MIDNIGHT: topiramate 200 mg capsule,extended release 24 hr 200 mg PO QAM acetaminophen 500 mg tablet (Tylenol Extra Strength) 500 mg PO Q6H PRN Pain oxycodone 5 mg tablet 5 mg PO Q4H PRN pain promethazine 25 mg tablet 25 mg PO Q6H PRN Nausea Take evening before surgery trazodone 50 mg tablet 50 mg PO HS duloxetine 60 mg capsule,delayed release (Cymbalta) 60 mg PO HS ecpbsxnihh-kzfbwddeefnpj-jctfmtdu 50 mg-325 mg-40 mg tablet 1 tab PO Q4H PRN Headache acetaminophen 500 mg tablet (Tylenol Extra Strength) 500 mg PO Q6H PRN Pain oxycodone 5 mg tablet 5 mg PO Q4H PRN pain promethazine 25 mg tablet 25 mg PO Q6H PRN Nausea Other Notes STOP TAKING 5 DAYS BEFORE SURGERY: phentermine 37.5 mg tablet 37.5 mg PO QAM If you have any questions please call us at [phone] or [phone] or [phone] or [phone]
--- NOTE | 2024-08-02 14:21 | Anesthesiology Consultation ---
Date of Service August 02, 2024 Assessment & Plan (1) Encounter for pre-operative examination: Chart Review Chart Review: Acceptable Risk for Surgery and Patient seen in Pre Admission Testing Pt currently scheduled as 23 hours observation. If surgeon decides to change patient to Same Day Joint, patient would be acceptable risk for TSA, pending patient is motivated, has good support and surgeon's office completes [facility] Program preop requirements. Per PAT appt on 08/02/24, no recent illness/disease exposures, illness related symptoms, or recent illness/disease positive tests. Will leave to surgeon's discretion if preop Covid testing needed Right TKA 10/26/18= Done under [facility] with LMA #[address] Prasad. Neck maintained in neutral position. PNB. (No SAB due to history of arachnoiditis) L4-S1 decompression and fusion 11/08/17= Done under [facility] with Grade 3 view (cricoid pressure to improve view) with MAC #3. ETT #7.0. Kept neck neutral only base of cords seen, atraumatic. (Small lip laceration noted) Teaching & Discussion Pre-Anesthesia Teaching/Discussion Notes: Instructed NPO after midnight before surgery,except medications with 15 cc of water. Medication instructions provided according to the PAT guidelines. History Surgery Operation Date: 08/25/24 08:10 Proposed Procedures p Left Reverse Total Shoulder Arthroplasty - Gage Fisher DO Height/Weight Height: 5 ft 10 in Weight: 82.554 kg Allergies Allergy/AdvReac Type Severity Reaction Status Date / Time NSAIDS (Non-Steroidal Allergy Severe ANAPHYLAXIS Verified 07/21/24 11:23 Anti-Inflamma Medications Home Medications Medication Instructions Recorded Confirmed Last Taken albuterol sulfate 90 mcg/actuation 2 puff inhalation QID PRN Wheezing 09/12/18 07/21/24 Unknown aerosol inhaler duloxetine 60 mg capsule,delayed 60 mg PO HS 09/12/18 07/21/24 12/24/18 release (Cymbalta) furosemide 40 mg tablet 40 mg PO QAM PRN Edema 09/12/18 07/21/24 Unknown prednisone 5 mg tablet 5 mg PO UD PRN arachnoiditis 09/12/18 07/21/24 Unknown topiramate 200 mg capsule,extended 200 mg PO QAM 09/12/18 07/21/24 12/25/18 release 24 hr trazodone 50 mg tablet 50 mg PO HS 09/12/18 07/21/24 12/24/18 acetaminophen 500 mg tablet 500 mg PO Q6H PRN Pain 12/25/18 07/21/24 12/25/18 20:30 (Tylenol Extra Strength) 1000 mg oxycodone 5 mg tablet 5 mg PO Q4H PRN pain #15 tabs 12/25/18 07/21/24 Unknown alhsouycjy-nsqpooboukcxf-ouweteys 1 tab PO Q4H PRN Headache 07/21/24 07/21/24 Unknown 50 mg-325 mg-40 mg tablet calcium 315 mg (as 1 tab PO QAM 07/21/24 07/21/24 Unknown citrate)-vitamin D3 6.25 mcg (250 unit) tablet ergocalciferol (vitamin D2) 1,250 1,250 mcg PO WK 07/21/24 07/21/24 Unknown mcg (50,000 unit) capsule (Vitamin D2) magnesium oxide 500 mg PO DAILY 07/21/24 07/21/24 Unknown phentermine 37.5 mg tablet 37.5 mg PO QAM 07/21/24 07/21/24 Unknown promethazine 25 mg tablet 25 mg PO Q6H PRN Nausea 07/21/24 07/21/24 Unknown rimegepant 75 mg disintegrating 75 mg PO 3XWK 07/21/24 07/21/24 Unknown tablet (Nurtec ODT) tretinoin 0.05 % topical cream 1 applic topical HS 07/21/24 07/21/24 Unknown vitamin B complex 1 tab PO DAILY 07/21/24 07/21/24 Unknown zinc 50 mg tablet 50 mg PO DAILY 07/21/24 07/21/24 Unknown Past Medical History Medical History (Updated 08/02/24 @ 14:27 by Betsy Coronado PA-C) Arachnoiditis -Takes Prednisone PRN for flares -these happen randomly. Per pt thought to have been caused by first spine surgery ~1989 - Flare ups include severe lower extremity pain and numbness. Asthma well controlled, inhaler prn Depression Insomnia Lumbar spinal stenosis Migraine Gets Botox treatments Muscle spasms of neck Prediabetes Exercise / Class Metabolic Activity II 4-5 Yardwork/Stairs/Walk up hill (one flight of stairs - no chest pain or SOB- mild leg weakness due to lumbar stenosis ) Past Family History Family History Father Pancreatic cancer Mother Hypertension Other No family history of adverse response to anesthesia Past Surgical History Surgical History (Updated 08/03/24 @ 11:03 by Betsy Coronado PA-C) Fusion of spine 2 LEVEL CERVICAL FUSION, 1 LUMBAR (2 LEVEL) FUSION 11/2017. 2 PREVIOUS C-SPINE AND LUMBAR SURGERIES (NOT FUSIONS) L4-S1 decompression and fusion 11/08/17= Done under GA with Grade 3 view (cricoid pressure to improve view) with MAC #3. ETT #7.0. Kept neck neutral only base of cords seen, atraumatic. (Small lip laceration noted) H/O elbow surgery History of arthroscopic knee surgery History of bilateral cataract extraction History of bilateral oophorectomy RIGHT History of bilateral tubal ligation History of carpal tunnel release History of gastric bypass History of shoulder surgery LEFT RCR, AND IMANI PROCEDURE History of total knee replacement Left TKA around 2014 (done under [facility] per patient) S/P total knee arthroplasty (10/2018) Right TKA 10/26/18= Done under [place] with LMA #[address] Prasad. Neck maintained in neutral position. PNB. (No SAB due to history of arachnoiditis) Past Anesthesia History No Hx of Anesthesia Complications and No Family Hx of Anesthesia Complications History of PONV No Hx of PONV and No Hx of Motion Sickness Social History Smoking Status: Never smoker Do You Dip or Chew Tobacco: No Hx Alcohol Use: Yes (rare) alcohol intake frequency: holidays/special occasions only Hx Substance Use: No substance use type: does not use Review of Systems - Hx of snoring - no witnessed apnea - no hx of sleep study Patient denies chest pain, shortness of breath, dyspnea on exertion, reflux, cough, wheezing, palpitations. No hx of seizures, stroke, PR. No hx of blood clots or blood transfusions Physical Exam Vital Signs VITALS BP 118/82 P 72 TEMP 98.0 SP02 98% RESP 16 Constitutional no acute distress ENMT Mouth: no TMJ clicking Thyromental Distance: > or= 3.5 Finger Breadths (3.5) Mallampati Class: III Missing molars Crowns to side teeth and molars Neck + limited neck extension (significant ) Respiratory normal respiratory effort; no respiratory distress Auscultation: lungs clear to auscultation bilaterally; no wheezes Cardiovascular Rate/Rhythm: regular rate and regular rhythm Heart Sounds: no murmur Vessels: no carotid bruit Musculoskeletal Spine: no pain with cervical ROM Extremities: extremities normal to inspection Psychiatric Orientation: alert Lab Results Anesthesia Preop Results Results Anesthesia Widget: WBC 5.23 K/ul (4.8-10.8) 08/02/24 Hgb 12.2 g/dl (12.0-16.0) 08/02/24 Hct 38.2 % (37.0-47.0) 08/02/24 Plt 174 K/uL (130-400) 08/02/24 Na 139 mmol/L (136-145) 08/02/24 K 4.2 mmol/L (3.5-5.1) 08/02/24 Cl 107 mmol/L (98-107) 08/02/24 CO2 28 mmol/L (21-32) 08/02/24 BUN 24 mg/dl (6-23) H 08/02/24 Creat 0.70 mg/dl (0.6-1.2) 08/02/24 Glucose Level 96 mg/dl (70-99(Fasting)) 08/02/24 PT 10.6 Seconds (9.0-12.0) 08/02/24 PTT 26 Seconds (21-31) 08/02/24 INR 1.0 (0.9-1.1) 08/02/24 HA1c 5.6 % (4.5-5.6) 08/02/24 Blood Type O Negative 08/02/24 Antibody Screen NEGATIVE 08/02/24 Testing Electrocardiogram Date: 08/02/24 Findings: + NSR @ (72bpm) Normal EKG per cardio Chest X-Ray Date: 08/02/24 Findings: + NAD FINDINGS: Heart size and pulmonary vasculature are normal. Stable hyperexpanded lungs. No effusion or consolidation. Stable mild scoliosis
[~2024-08-25 07:36] MED LIST changes: -ACETAMINOPHEN 500 MG TAB PO SCH; +BUPIVACAINE 0.5 % 5 MG/1 ML PF 10ML VIAL ONE; -CEFAZOLIN 2000MG IV PUSH 15 ML IV SCH; -CYM/30 PO; -CeleBREX 200 MG CAP PO SCH; -FRCT/ PO; -FRS/40 PO; -GABAPENTIN 600 MG PO SCH; -LACTATED RINGER'S 1000ML 1,000 ML IV SCH; -OXYC-57 PO; -SUMA100T16 PO; -TOPI100T20 PO; -TRAZ50TA35 PO; -VNTHFA/IN INH
--- OUTSIDE RECORDS SUMMARY | 2024-08-25 08:04 | External Medical Summary | Summary of Care ---
Author Name Unknown Organization [facility] Address [address] [place] [address] Phone [phone] Care Team Providers Care Director Biologics Name Role Phone Ramiro Mercado MD Primary Care Provider [phone]- [phone] Reason for Referral * Clinic-administered Medications (Within 10 days (routine)) - Pending Review Specialty Diagnoses / Procedures Referred By Contac t Referred To Contact Diagnoses Intractable chronic migraine without aura and without status migrainosus Teja Fairchild, [facility] [address] [place] [address] Phone: tel: fax: Referral ID Status Reason Start Date Expiration Date V isits Requested Visits Authorized [id number] Pending Review 08/23/2024 4 4 Encounter Details Date Type Department Care Team (Late st Contact Info) Description 08/23/2024 Orders Only Neurology [facility] [place] [address] [place] [address] Joseph Mallory DO [address] [place] [address] Intractable chronic migraine without aura and without status migrainosus* Allergies Active Allergy Reactions Criticality Noted Date Comments Nsaids 05/19/2016 GI distress documented as of this encounter (statuses as of 08/23/2024) Medications Albuterol Sulfate HFA 108 (90 Base) MCG/ACT Inhalation Aerosol Solution INHALE 2 PUFFS BY MOUTH 4 TIMES A DAY 18 g 5 09/20/19 24 Active Tretinoin 0.05 % External Cream (Retin-A)Indicatio ns:Acne vulgaris Apply topically to affected area at bedtime. 30 minutes after washing and drying skin. 20 g 11 09/20/19 24 Active Topiramate 200 MG Oral Tablet (topAMAX) TAKE 1 TABLET BY MOUTH EVERY DAY 90 Tablet 3 12/02/19 24 Active B Complex Vitamins Oral CapsuleIndications :S/P gastric bypass,Intestinal postoperative nonabsorption Take 1 Capsule by mouth in the morning. 90 Capsule 01/21/20 24 Active Vitamin D (Ergocalciferol) 1.25 MG (67965 UT) Oral Capsule (Drisdol)Indicatio ns:S/P gastric bypass,Intestinal postoperative nonabsorption Take 1 Capsule by mouth once a week. 12 Capsule 1 01/21/20 24 Active DULoxetine HCl 60 MG Oral Capsule Delayed Release Particles (Cymbalta) TAKE 1 CAPSULE BY MOUTH EVERY DAY IN THE MORNING 90 Capsule 3 03/24/20 24 Active traZODone HCl 100 MG Oral Tablet (Desyrel)Indicatio ns:Insomnia, unspecified type TAKE 1 TABLET BY MOUTH EVERYDAY AT BEDTIME 90 Tablet 3 03/24/20 24 Active Promethazine HCl 25 MG Oral Tablet (Phenergan)Indicat ions:Migraine with aura and without status migrainosus, not intractable Take 1 Tablet by mouth every 6 hours as needed for Nausea. or vomiting 20 Tablet 1 07/18/19 25 Active Additional Information Patient not taking.Reported on 08/07/2024 Zqcpesqwyq-SFKX-Sl ffeine 50-325-40 MG Oral Tablet Take 1 Tablet by mouth every 4 hours as needed for Headache. 60 Tablet 2 07/18/19 25 Active Phentermine HCl 37.5 MG Oral TabletIndications: Class 1 obesity due to excess calories without serious comorbidity with body mass index (BMI) of 32.0 to 32.9 in adult Take 1 Tablet by mouth daily before breakfast. 30 Tablet 07/20/19 25 Active oxyCODONE-Acetamin ophen 5-325 MG Oral Tablet (Percocet)Indicati ons:Lumbar degenerative disc disease Take 1 Tablet by mouth every 8 hours as needed for Pain, Breakthrough. 30 Tablet 02/11/20 25 Active Nurtec 75 MG Oral Tablet Disintegrating (Rimegepant Sulfate)Indication s:Migraine with aura and without status migrainosus, not intractable TAKE 1 TAB BY MOUTH EVERY OTHER DAY. MAY ALSO TAKE 1 TAB AT ONSET OF MIGRAINE 3 ADDITIONAL TIMES PER MONTH. 18 Tablet 2 08/16/19 25 Active Hospital, Clinic, or Other Facility Administered Medication Ordered Dose Route Frequency Start Date End Date Status botulinum toxin type a (Botox) inj 200 UnitsIndications:Intractabl e chronic migraine without aura and without status migrainosus 200 Units IM [id number] 08/23/2024 07/25/2025 Active documented as of this encounter (statuses as of 08/23/2024) Active Problems Problem Noted Date Diagnosed Date Thyromegaly 02/22/2024 Uncomplicated asthma 02/22/2024 Uncomplicated asthma 02/22/2024 Uncomplicated asthma 02/22/2024 Lumbar degenerative disc disease 04/15/2020 Chronic bilateral low back pain without sciatica 04/15/2020 Actinic keratosis 09/19/2019 MEDICATION USE AGREEMENT 06/01/2017 Overview (06/01/2017): Signed 06/01/17 Gastroesophageal reflux disease without esophagi tis 06/01/2017 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 Overview (04/05/2017): ICD-10 update of inactive term 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 Classical migraine without intractable migraine 10/28/2000 documented as of this encounter (statuses as of 08/23/2024) Resolved Problems Problem Noted Date Diagnosed Date Resolved Date Prediabetes 10/10/2018 05/20/2023 Overview: Per Prediabetes protocol #1 Major depressive disorder, s triny episode, in full remission 03/21/2018 10/15/2020 Major depressive disorder 04/27/2003 Overview (04/27/2017): ICD-10 update of inactive term Morbid obesity, BMI not known 08/03/2002 09/13/2003 High triglycerides 08/03/2002 1 FAMILY HX-GI MALIGNANCY 05/04/200205/06 Heartburn 05/04/2002 06/01/2017 CLASSICAL MIGRAINE WITH INTR ACTABLE MIGRAINE, SO STATED 04/10/2002 09/13/2003 Conjunctivitis 12/28/2001 09/13/2003 Need for prophylactic hormon e replacement therapy (postmenopausal) 10/28/2000 09/13/2003 Menopause 10/28/2000 06/01/2017 Edema 10/28/2000 06/01/2017 OVERWEIGHT 10/28/2000 06/01/2017 Other acne 06/01/2017 documented as of this encounter (statuses as of 08/23/2024) Immunizations Name Administration Dates Next Due COVID-19 mRNA, LNP-s, No Pre serve, 2-Dose Series (Siine) 02/26/2021,09/24/2020,09/03/2020 COVID-19, mRNA, LNP-s, PF, B ooster, 100mcg/0.5mg (Moderna) 05/30/2024 Pneumococcal Conjugate Vacci ne, 20-valent ([id number]) 05/22/2022 Pneumococcal Polysaccharide PPV23 (Pneumovax) 04/21/2021,05/03/2006 Seasonal Influenza Vac., MDV , IM, 0.5 mL (Fluzone) 05/03/2006 Seasonal Influenza, PF, 6 M & above, IM , (FluLaval or Fluzone) 04/15/2020,05/18/2019,03/21/2018,06/01 Seasonal Influenza, Quadriva lent Hd (Fluzone Hd) 04/23/2023,05/22/2022,04/21/2021 Seasonal Influenza, Quadriva lent, No Preserve, IM 05/19/2016 Seasonal Influenza, Trivalen t, Adjuvanted, 65+ YRS, PF, (Fluad) 05/30/2024 TD - Tetanus/Diptheria (ADULT) 10/17/2007 TDAP (age 10 and older)(Boostrix) 06/07/2023 TDAP, Age 7 and older, IM (Adacel) 08/03/2012 Zoster Vaccine Recombinant (Shingrix) 09/20/2018 ,03/21/2018 documented as of this encounter Social History Tobacco Use Types Packs/Day Years Used Date Smoking Tobacco: Never Smokeless Tobacco: Never Alcohol Use Standard Drinks/Week Comments Yes 0 (1 standard drink = 0.6 oz pur e alcohol) rare PHQ-2 Answer Date Recorded PHQ-2 Score 0 11/02/2019 Hunger Vital Sign Answer Date Recorded Within the past 12 months, y ou worried that your food would run out before you got the money to buy more. Never true 02/21/20 24 Within the past 12 months, t he food you bought just didn't last and you didn't have money to get more. Never true 02/21/2024 Childcare Answer Date Recorded Do you feel overwhelmed with taking care of a child, family member or friend? No 02/21/2024 Does your family need help f inding childcare? (Household - for ages 0-17 years) Not on file 02/21/2024 Clothing Answer Date Recorded Have you been unable to get clothing when it was really needed? No 02/21/2024 Is your family able to get c lothes or diapers when needed? (Household - for ages 0-17 years) Not on file 02/21/2024 Personal Safety Answer Date Recorded Do you feel unsafe or have concerns for your saf ety? No 02/21/2024 Do you have concerns for you r family's safety? (Household - for ages 0-17 years) Not on file 02/21/2024 Utilities Answer Date Recorded Do you have trouble paying y our heating, water, or electric bill? No 02/21/2024 Is your family able to pay t he heat, water, or electric bill? (Household - for ages 0-17 years) Not on file 02/21/2024 Does your family have access to good internet? (Household - for ages 0-17 years) Not on file 02/21/2024 Employment Status Answer Date Recorded Are you unemployed or without regular income? No 02/21/2024 Does the household have a re gular source of income? (Household - for ages 0-17 years) Not on file 02/21/2024 Social Connections Answer Date Recorded How often do you feel lonely or isolated from th ose around you? Rarely 02/21/2024 Financial Resource Strain Answer Date R ecorded Do you have any trouble payi ng for your medications, or do you think you might in the future? Yes 02/21/2024 Does your family have troubl e paying for medicine? (Household - for ages 0-17 years) Not on file 02/21/2024 Transportation Needs Answer Date Record ed Do you have trouble getting a ride to medical visits or work? (Adult - for ages 18 years and over) Not on file 02/21/2024 Does your family have a hard time getting a ride to doctors visits? (Household - for ages 0-17 years) Not on file 02/21/2024 Has lack of transportation k ept you from medical appointments, meetings, work, or from getting things needed for daily living? Check all that apply. No 02/21/2024 Do you (or your family) have trouble finding or paying for a ride (transportation)? (Household - for ages 0-17 years) Not on file 02/21/2024 Housing Stability Answer Date Recorded Do you currently live in a s helter or have no steady place to sleep at night? No 02/21/2024 Do you think you are at risk of becoming homeless? (Adult - for ages 18 years and over) Not on file 02/21/2024 Does your family worry about paying for your home or becoming homeless? (Household - for ages 0-17 years) Not on file 0 02/21/2024 Are you homeless or worried that you might be in the future? No 02/21/2024 Are you (or your family) víctor eless or worried that you might be in the future? (Household - for ages 0-17 years) Not on file Food Insecurity Answer Date Recorded Do you need food for this week? No 02/21/2024 Are you able to get enough f ood for your family? (Household - for ages 0-17 years) Not on file 02/21/2024 Does your family need food t his week? (Household - for ages 0-17 years) Not on file 02/21/2024 Do you always have enough fo od for your family? (Household - for ages 0-17 years) Not on file 02/21/2024 Food Insecurity Answer Date Recorded Within the past 12 months, y ou worried that your food would run out before you got the money to buy more. Never true 02/21/20 24 Within the past 12 months, t he food you bought just didn't last and you didn't have money to get more. Never true 02/21/2024 Do you need food for this week? 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 Not on file Not on file documented as of this encounter Plan of Treatment Upcoming Encounters Date Type Department Care Team (Late st Contact Info) Description 11/03/2024 2:20 PM EDT Office Visit Neurology [facility] [place] [address] [place] [address] Joseph Mallory, [address] [facility] [place] [address] 02/06/2025 3:40 PM EDT Office Visit [facility] [address] [id number] Mony Pedraza PA-C [address] [place] [address] Scheduled Procedures Name Priority Associated Diagnoses Date/Ti me COLONOSCOPY FLEXIBLE PROXIMA L DIAGNOSTIC Recall History of colonic polyps Health Maintenance Due Date Last Done Comments DXA Scan 1955 Cologuard 09/21/2000 Fecal Occult Blood Test 09/21/2000 Sigmoidoscopy 09/21/2000 Depression Screening 10/23/2020 10/24/2019 Adult Wellness Visit 09/21/2021 COVID-19 Vaccine ( season) 2024 05/30/2024, 02/26/2021, 09/24/2020, Additional history exists Mammogram 07/14/2025 07/14/2024, 07/05, 12/07/2022, Additional history exists Colonoscopy 04/20/2026 04/20/2023, 04/04, 01/07/2021, Additional history exists Colorectal Cancer Screening 04/20/2026 Diabetes Screening 01/10/2027 01/11/2024, 0 01/11/2024, 04/23/2023, Additional history exists Lipid Panel 01/10/2029 01/11/2024, 1102/2022, 10/15/2020, Additional history exists DTap/Tdap Vaccines (3 - Td or Tdap) 06/07/2033 06/07/2023, 08/03/2012, 10/17/2007, Additional history exists Pap Smear Discontinued 03/21/2018, 03/05, 03/14/2007, Additional history exists Zoster Vaccines Completed 09/20/2018, 03/21/2018 Pneumococcal Vaccine: 50+ Years Completed 05/22/2022, 04/21/2021, 05/03/2006 RETIRED - COLONOSCOPY-EVERY 2 YRS AGES 18-100 Discontinued 04/20/2023, 04/20/2023, 01/07/2021, Additional history exists Influenza Vaccine (FLU shot) Completed 05/30/2024, 04/23/2023, 05/22/2022, Additional history exists HPV (Gardasil) Vaccine Aged Out No lo nger eligible based on patient's age to complete this topic Hepatitis B Vaccine Aged Out No longe r eligible based on patient's age to complete this topic MENINGOCOCCAL (MENACTRA/MENVEO) Aged Out No longer eligible based on patient's age to complete this topic Meningitis B Vaccine (Bexsero/Trumemba) Aged Out No longer eligible based on patient's age to complete this topic documented as of this encounter Medical Devices Implanted Type Area Day Spa Manager Device Identifier Shelf Expiration Date Model / Serial / Lot Lens Li61ao 13.00mm 25.00 - [id number] - [id number] Implanted:Qty: 1 on 05/11/2023 by Andre Murray MD at [facility] Left: Eye [employer] 07/04/2027 [id number] / [id number] / [id number] Lens Li61ao 13.00mm 24.00 - [id number] - [id number] Implanted:Qty: 1 on 05/25/2023 by Andre Murray MD at [facility] Right: Eye [employer] 12/03/2027 [id number] / [id number] / [id number] documented as of this encounter Visit Diagnoses Diagnosis Intractable chronic migraine without aura and without status migrainosus- Primary Chronic migraine without aura, with intractable migraine, so stated, without mention of status migrainosus documented in this encounter Advance Directives * Full Code (Latest Code Status on File) Date Activated Date Inactivated Comments 05/25/2023 2:27 PM 05/25/2023 8:27 PM This order reflects the patients wishes and were consensually agreed upon. Question Answer Comments Discussion of Advance Directives occurred with: Patient Does the patient have a Living Will? No Does the patient have Health Care Power of Attor ana? No * Full Code Date Activated Date Inactivated Comments 05/11/2023 8:02 AM 05/11/2023 2:16 PM This order r eflects the patients wishes and were consensually agreed upon. Question Answer Comments Discussion of Advance Directives occurred with: Patient Does the patient have a Living Will? No Does the patient have Health Care Power of Attor ana? No Care Teams Director Biologics Relationship Specialty Start Date End Date Ramiro Mercado MD [address] [address] PCP - General Family Medicine 08/01/24 documented as of this encounter
--- OUTSIDE RECORDS SUMMARY | 2024-08-25 08:04 | External Medical Summary | Summary of Care ---
Author Name Unknown Organization [facility] Address [address] [place] [address] Phone [phone] Care Team Providers Care Manager Enrollment Name Role Phone Maranda Lynn MD Primary Care Provider [phone]- [phone] Reason for Visit * Reason Onset Date Comments Medication Refill 08/14/2024 Encounter Details Date Type Department Care Team (Late st Contact Info) Description 08/14/2024 Refill [facility] [address] [place] [phone] Maranda Lynn MD [address] [place] [address] Lumbar degenerative disc disease Allergies Active Allergy Reactions Criticality Noted Date Comments Nsaids 05/19/2016 GI distress documented as of this encounter (statuses as of 08/16/2024) Medications Albuterol Sulfate HFA 108 (90 Base) [...] DAY 90 Tablet 3 12/02/19 24 Active Nurtec 75 MG Oral Tablet Disintegrating (Rimegepant Sulfate)Indication s:Migraine with aura and without status migrainosus, not intractable One tab by mouth every other day. May also take one tab at onset of migraine 3 additional times per month. 18 Tablet 2 01/18/20 24 Active B Complex Vitamins Oral CapsuleIndications :S/P gastric bypass,Intestinal postoperative nonabsorption Take 1 Capsule by mouth in the morning. 90 Capsule 01/21/20 24 Active Vitamin D (Ergocalciferol) 1.25 MG (41451 UT) Oral Capsule (Drisdol)Indicatio ns:S/P gastric bypass,Intestinal [...] Additional Information Patient not taking.Reported on 08/07/2024 Xuqdowfusb-CZQG-Jg ffeine 50-325-40 MG Oral Tablet Take 1 [...] as needed for Pain, Breakthrough. 30 Tablet 08/15/19 25 Active oxyCODONE-Acetamin ophen 5-325 MG Oral Tablet (Percocet)Indicati ons:Lumbar degenerative disc disease Take 1 Tablet by mouth every 8 hours as needed for Pain, Breakthrough. 30 Tablet 07/18/19 25 025 Discontin ued(Refil l) documented as of this encounter (statuses as of 08/16/2024) Active Problems Problem Noted Date Diagnosed Date [...] as of this encounter (statuses as of 08/16/2024) Resolved Problems Problem Noted Date Diagnosed Date [...] as of this encounter (statuses as of 08/16/2024) Immunizations Name Administration Dates Next Due COVID-19 mRNA, LNP-s, No Pre serve, 2-Dose Series (iCharts) 02/26/2021,09/24/2020,09/03/2020 COVID-19, mRNA, LNP-s, PF, B ooster, 100mcg/0.5mg (Moderna) 05/30/2024 Pneumococcal Conjugate Vacci ne, 20-valent ([id number]) 05/22/2022 Pneumococcal Polysaccharide PPV23 (Pneumovax) 04/21/2021,05/03/2006 Seasonal [...] No 02/21/2024 Does the household have a [facility] source of income? 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 * Telephone Encounter - Leonor Morales [facility] - 08/15/2024 7:14 AM EST I have reviewed the patients controlled substance dispensing history in the Prescription Drug Monitoring Program in compliance with the [facility] regulations before prescribing a controlled substance. PDMP checked on 08/15/2024. Pending Prescriptions: Disp Refills oxyCODONE-Acetaminophen 5-325 MG Oral Tab*30 Tab*0 Sig: Take 1 Tablet by mouth every 8 hours as needed for Pain, Breakthrough. Last Visit: 08/07/2024 (in office), Visit date not found (telemedicine) Next Visit: 02/06/2025 Date medication was last filled: 07/18/24 Date medication is due for refill: 07/27/24 Pharmacy: [id number] [address] [facility] Is this request for a controlled substance? Yes and Urine Drug Screen Not completed Toxicology results: No results found for this or any previous visit. Please approve if appropriate. Thanks, Leonor Morales, PharmD Clinical Pharmacist [facility] [phone] 08/15/2024 7:14 AM documented in this encounter Plan of Treatment Upcoming Encounters Date Type Department Care Team (Late st Contact Info) Description 11/03/2024 2:20 PM EDT Office Visit [facility] [place] [address] [place] [address] Joseph Mallory, [address] [facility] [place] [address] 02/06/2025 3:40 PM EDT [facility] [place] [facility] [address] [facility] [place] [phone] Mony Pedraza PA-C [address] [facility] [place] [phone] Scheduled Procedures Name Priority Associated Diagnoses Date/Ti [...] this encounter Medical Devices Implanted Type Area Launch Leader Device Identifier Shelf Expiration Date Model / Serial / Lot Lens Li61ao 13.00mm 25.00 - [id number] - [id number] Implanted:Qty: 1 on 05/11/2023 by Andre Murray MD at OR [facility] Left: Eye [employer] 07/04/2027 [id number] / [id number] / [id number] Lens Li61ao 13.00mm 24.00 - [id number] - [id number] Implanted:Qty: 1 on 05/25/2023 by Andre Murray MD at OR [facility] Right: Eye [employer] 12/03/2027 [id number] / [id number] / [id number] documented as of this encounter Visit Diagnoses Diagnosis Lumbar degenerative disc disease Degeneration of lumbar or lumbosacral intervertebral disc documented in this encounter Advance Directives * [...] Power of Attor ana? No Care Teams Manager Enrollment Relationship Specialty Start Date End Date Maranda Lynn MD [address] [facility] [place] [address] PCP - General Family Medicine 08/01/24 documented as of this encounter
--- OUTSIDE RECORDS SUMMARY | 2024-08-25 08:04 | External Medical Summary | Summary of Care ---
Author Name Unknown Organization [facility] Address [address] [place] [address] Phone [phone] Care Team Providers Care Horse Show Manager Name Role Phone Maranda Lynn MD Primary Care Provider [phone]- [phone] Reason for Visit * Reason Comments eRx-Medication Refill Encounter Details Date Type Department Care Team (Late st Contact Info) Description [facility]/16[facility] [facility] [address] [facility] [phone] Mony Pedraza PA-C [address] [employer] [place] [address] Migraine with aura and without status migrainosus, not intractable Allergies Active Allergy Reactions Criticality Noted Date Comments Nsaids 05/19/2016 GI distress documented as of this encounter (statuses as of 08/16/2024) Medications Albuterol Sulfate HFA 108 (90 Base) MCG/ACT Inhalation Aerosol Solution INHALE 2 PUFFS BY MOUTH 4 TIMES A DAY 18 g 5 024 Active Tretinoin 0.05 % External Cream (Retin-A)Indicati ons:Acne vulgaris Apply topically to affected area at bedtime. 30 minutes after washing and drying skin. 20 g 11 024 Active Topiramate 200 MG Oral Tablet (topAMAX) TAKE 1 TABLET BY MOUTH EVERY DAY 90 Tablet 3 024 Active B Complex Vitamins Oral CapsuleIndication s:S/P gastric bypass,Intestinal postoperative nonabsorption Take 1 Capsule by mouth in the morning. 90 Capsule 024 Active Vitamin D (Ergocalciferol) 1.25 MG (70441 UT) Oral Capsule (Drisdol)Indicati ons:S/P gastric bypass,Intestinal postoperative nonabsorption Take 1 Capsule by mouth once a week. 12 Capsule 1 024 Active DULoxetine HCl 60 MG Oral Capsule Delayed Release Particles (Cymbalta) TAKE 1 CAPSULE BY MOUTH EVERY DAY IN THE MORNING 90 Capsule 3 024 Active traZODone HCl 100 MG Oral Tablet (Desyrel)Indicati ons:Insomnia, unspecified type TAKE 1 TABLET BY MOUTH EVERYDAY AT BEDTIME 90 Tablet 3 024 Active Promethazine HCl 25 MG Oral Tablet (Phenergan)Indica tions:Migraine with aura and without status migrainosus, not intractable Take 1 Tablet by mouth every 6 hours as needed for Nausea. or vomiting 20 Tablet 1 025 Active Additional Information Patient not taking.Reported on 08/07/2024 Juxfijbxdi-DJRR-D affeine 50-325-40 MG Oral Tablet Take 1 Tablet by mouth every 4 hours as needed for Headache. 60 Tablet 2 025 Active Phentermine HCl 37.5 MG Oral TabletIndications :Class 1 obesity due to excess calories without serious comorbidity with body mass index (BMI) of 32.0 to 32.9 in adult Take 1 Tablet by mouth daily before breakfast. 30 Tablet 025 Active oxyCODONE-Acetami nophen 5-325 MG Oral Tablet (Percocet)Indicat ions:Lumbar degenerative disc disease Take 1 Tablet by mouth every 8 hours as needed for Pain, Breakthrough. 30 Tablet 025 Active Nurtec 75 MG Oral Tablet Disintegrating (Rimegepant Sulfate)Indicatio ns:Migraine with aura and without status migrainosus, not intractable TAKE 1 TAB BY MOUTH EVERY OTHER DAY. MAY ALSO TAKE 1 TAB AT ONSET OF MIGRAINE 3 ADDITIONAL TIMES PER MONTH. 18 Tablet 2 025 Active Nurtec 75 MG Oral Tablet Disintegrating (Rimegepant Sulfate)Indicatio ns:Migraine with aura and without status migrainosus, not intractable One tab by mouth every other day. May also take one tab at onset of migraine 3 additional times per month. 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 MAY ALSO TAKE 1 TAB AT ONSET OF MIGRAINE 3 ADDITIONAL TIMES PER MONTH.Authorizing Provider: MARANDA LYNN * Telephone Encounter - Zahida Astudillo LPN - 08/16/2024 7:50 AM ESTPending Prescriptions: Disp Refills Nurtec 75 MG Oral Tablet Disintegrating [P*18 Tab*2 Sig: TAKE 1 TAB BY MOUTH EVERY OTHER DAY. MAY ALSO TAKE 1 TAB AT ONSET OF MIGRAINE 3 ADDITIONAL TIMES PER MONTH. * Telephone Encounter - Laura Worthington - 08/16/2024 4:05 AM ESTPending Prescriptions: Disp Refills Nurtec 75 MG Oral Tablet Disintegrating [P*18 Tab*2 Sig: TAKE 1TAB BY MOUTH EVERY OTHER DAY. MAY ALSO TAKE 1 TAB AT ONSET OF MIGRAINE 3 ADDITIONAL TIMES PER MONTH. documented in this encounter Plan of Treatment Upcoming Encounters Date Type Department Care Team (Late st Contact Info) Description 11/03/2024 2:20 PM EDT Office Visit Neurology [facility] [place] [address] [facility] [place] [address] Joseph Mallory, [address] [facility] [place] [address] 02/06/2025 3:40 PM EDT Office Visit [facility] [place] [address] [place] [phone] Mony Pedraza PA-C [address] [place] [address] Scheduled Procedures Name Priority Associated Diagnoses Date/Ti [...] Additional history exists Lipid Panel 01/10/2029 01/11/2024, 11/0 02/2022, 10/15/2020, Additional history exists DTap/Tdap Vaccines (3 [...] this encounter Medical Devices Implanted Type Area Valve Fitter Device Identifier Shelf Expiration Date Model / Serial / Lot Lens Li61ao 13.00mm 25.00 - [id number] - [id number] Implanted:Qty: 1 on 05/11/2023 by Andre Murray MD at OR [facility] Left: Eye [employer] 07/04/2027 [id number] / [id number] / [id number] Lens Li61ao 13.00mm 24.00 - [id number] - [id number] Implanted:Qty: 1 on 05/25/2023 by Andre Murray MD at OR [facility] Right: Eye [employer]OM[employer] 12/03/2027 [id number] / [id number] / [id number] documented as of this encounter Visit Diagnoses Diagnosis Migraine with aura and without status migrainosus, not intractable Migraine with aura, without mention of intractable migraine without mention of status migrainosus documented in [...] Power of Attor ana? No Care Teams Horse Show Manager Relationship Specialty Start Date End Date Maranda Lynn MD [address] [place] [address] PCP - General Family Medicine 08/01/24 documented as of this encounter
--- OUTSIDE RECORDS SUMMARY | 2024-08-25 08:04 | External Medical Summary | Summary of Care ---
Author Name Unknown Organization [facility] Address [address] [place] [address] Phone [phone] Care Team Providers Care Behavioral Health Care Coordinator Name Role Phone Ramiro Mercado MD Primary Care Provider [phone]- [phone] Reason for Visit * Reason Comments Follow Up Pt here for a 6 verenice h f/u apt, has some swelling and pitting edema in Lt foot. Encounter Details Date Type Department Care Team (Late st Contact Info) Description 08/07/2024 11:40 AM EST Office Visit [facility] [address] [facility] [place] [phone] Mony Pedraza PA-C [address] [place] [address] Intestinal postoperative nonabsorption*; Thyromegaly; Uncomplicated asthma, unspecified asthma severity, unspecified whether persistent; Encounter for screening mammogram for breast cancer; Classical migraine without intractable migraine; Small vessel disease (HCC); Bilateral cold feet Allergies Active Allergy Reactions Criticality Noted Date Comments Nsaids 05/19/2016 GI distress documented as of this encounter (statuses as of 08/08/2024) Medications Albuterol Sulfate HFA 108 (90 Base) [...] 24 Active Vitamin D (Ergocalciferol) 1.25 MG (84264 UT) Oral Capsule (Drisdol)Indicatio ns:S/P gastric bypass,Intestinal [...] Additional Information Patient not taking.Reported on 08/07/2024 oxyCODONE-Acetamin ophen 5-325 MG Oral Tablet (Percocet)Indicati ons:Lumbar degenerative disc disease Take 1 Tablet by mouth every 8 hours as needed for Pain, Breakthrough. 30 Tablet 07/18/19 25 Active Bkjcfxmqur-HHYY-Cn ffeine 50-325-40 MG Oral Tablet Take 1 Tablet by mouth every 4 hours as needed for Headache. 60 Tablet 2 07/18/19 25 Active Phentermine HCl 37.5 MG Oral TabletIndications: Class 1 obesity due to excess calories without serious comorbidity with body mass index (BMI) of 32.0 to 32.9 in adult Take 1 Tablet by mouth daily before breakfast. 30 Tablet 07/20/19 25 Active documented as of this encounter (statuses as of 08/08/2024) Active Problems Problem Noted Date Diagnosed Date [...] as of this encounter (statuses as of 08/08/2024) Resolved Problems Problem Noted Date Diagnosed Date [...] as of this encounter (statuses as of 08/08/2024) Immunizations Name Administration Dates Next Due COVID-19 mRNA, LNP-s, No Pre serve, 2-Dose Series (Pfizer) 02/26/2021,09/24/2020,09/03/2020 COVID-19, mRNA, LNP-s, PF, B ooster, 100mcg/0.5mg (Moderna) 05/30/2024 Pneumococcal Conjugate Vacci ne, 20-valent ([id number]) 05/22/2022 Pneumococcal Polysaccharide PPV23 (Pneumovax) 04/21/2021,05/03/2006 Seasonal [...] Date Smoking Tobacco: Never Smokeless Tobacco: Never Tobacco Cessation:Counseling Given: Not Answered Alcohol Use Standard Drinks/Week Comments Yes 0 [...] ages 0-17 years) Not on file 02/21/2024 Comments No Sex and Gender Information Value Date Recorded Sex Assigned at Female 09/20/2018 3:05 PM EDT Legal Sex Female 5:57 AM EST Gender Identity Female 09/20/2018 3:05 PM EDT Sexual Orientation Straight 09/20/2018 3: 05 PM EDT 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 Not on file Not on file Not on file documented as of this encounter Last Filed Vital Signs Vital Sign Reading Time Taken Comments Blood Pressure 124/70 08/07/2024 11:43 AM EST Pulse 76 08/07/2024 11:43 AM EST Temperature 36.4 C (97.5 F) 08/07/2024 11:[address] Respiratory Rate 16 08/07/2024 11:43 AM EST Oxygen Saturation - - Inhaled Oxygen Concentration - - Weight 86.2 kg (190 lb) 08/07/2024 11:43 AM EST Height - - Body Mass Index 27.26 03/20/2024 3:18 PM EDT documented in this encounter Progress Notes * Mony Pedraza PA-C - 08/07/2024 11:41 AM EST Images from the original note were not included. History of Present Illness Maricel Mccormack is a 68 year old female that presents for Follow Up (Pt here for a 6 month f/u apt, has some swelling and pitting edema in Lt foot.) Here for reg return Getting ready for shoulder replacement - she had her pre-op done already. This is impacting her sleep. Dr Fisher. Migraine situation is improving. Doing botox. She just had her 2nd set of shots. As she has surgery coming up, does not want to touch on everything. Her L foot she notes some numbness. This is odd - usually has this in the R foot Has pitting edema Has lasix to use prn - has not used. Numbness is new Whole foot VASCULAR LAB RESULTS DATE OF EXAMINATION: 02/03/21 INDICATION: bilateral cyanosis in lower extremities r/o PAD This is an interpretation of an exam performed at [facility] ANKLE BRACHIAL INDEX OF THE LOWER EXTREMITIES Immediately before proceeding with the vascular lab procedure reported below, the identity of the patient, the correct exam and the correct procedural site were identified. Continuous wave doppler and appropriate size pressure cuffs were utilized during the examination. Findings: The right and left brachial artery blood pressures are 140 mmHg and 132 mmHg respectively. On the right, the posterior tibial artery waveform is triphasic and has an amplitude which is excellent. . The right dorsalis pedis artery waveform is triphasic and has an amplitude which is excellent. The right peroneal artery waveform is triphasic and has an amplitude which is excellent. The tibial pressures range from 132 mmHg to 150 mmHg. On the left, the posterior tibial artery waveform is triphasic and has an amplitude which is excellent. The left dorsalis pedis artery waveform is triphasic and has an amplitude which is excellent. The left peroneal artery waveform is triphasic and has an amplitude which is excellent. The tibial pressures range from 134 mmHg to 142 mmHg. IMPRESSION: AMANDA at rest is 1.1 on the right and 1.0 on the left. For the right lower extremity: Lower extremity Doppler Evaluation is normal at rest with no evidence of significant arterial occlusive disease. For the left lower extremity: Lower extremity Doppler Evaluation is normal at rest with no evidence of significant arterial occlusive disease. For baseline right foot PPG amplitude: Digit 1 is decreased. Digit 2 is flat. Digit 3 is decreased. Digit 4 is decreased. Digit 5 is decreased. For baseline left foot PPG amplitude: Digit 1 is decreased. Digit 2 is decreased. Digit 3 is decreased. Digit 4 is decreased. Digit 5 is decreased. For the left lower extremity: Abnormal PPGs and normal large vessel arterial flow to the ankle level are consistent with small vessel arterial occlusive disease. Results for orders placed or performed in visit on 01/11/24 LIPID PANEL WITH DIRECT LDL IF TG IS HIGH Result Value Ref Range Triglycerides 80 <=174 mg/dL Cholesterol 226 (H) <200 mg/dL HDL Cholesterol 79 >49 mg/dL Non-HDL Cholesterol 147 <=159 mg/dL LDL Cholesterol 131 (H) <=129 mg/dL CBC Result Value Ref Range WBC 5.64 4.00 - 10.80 K/uL RBC 4.38 3.85 - 5.15 M/uL HGB 13.6 12.0 - 15.3 g/dL HCT 43.5 36.0 - 45.2 % MCV 99.3 81.5 - 97.5 fL MCH 31.1 27.0 - 34.0 pg MCHC 31.3 32.0 - 36.0 g/dL RDW 14.3 11.5 - 15.5 % PLT 208 140 - 400 K/uL MPV 10.3 6.6 - 11.1 fL nRBCs 0 <=0 /100 WBCs IRON SCREEN, INCLUDING TIBC Result Value Ref Range Iron 94 33 - 151 ug/dL Iron Binding Capacity 331 250 - 425 ug/dL Transferrin Saturation Percent 28 15 - 55 % FERRITIN Result Value Ref Range Ferritin 23 13 - 150 ng/mL COPPER, SERUM OR PLASMA Result Value Ref Range Copper 137 70 - 175 mcg/dL VITAMIN A (RETINOL) Result Value Ref Range Vitamin A (Retinol) 47 38 - 98 mcg/dL VITAMIN E (TOCOPHEROL) Result Value Ref Range Alpha-Tocopherol 11.7 5.7 - 19.9 mg/L Oshj-Yhccj-Onnqbqmgxw 1.2 <=4.3 mg/L VITAMIN B1 (THIAMINE), BLOOD, LC/MS/MS Result Value Ref Range Vitamin B1 (Thiamine),B 125 78 - 185 nmol/L VITAMIN K Result Value Ref Range Vitamin K 517 130 - 1500 pg/mL HEMOGLOBIN A1C Result Value Ref Range Hemoglobin A1C 5.5 4.0 - 5.6 % Estimated Average Glucose 111 <126 mg/dL PTH Result Value Ref Range PTH 46 15 - 65 pg/mL 25-HYDROXY VITAMIN D Result Value Ref Range 25-Hydroxy Vitamin D 28 >19 ng/mL FOLIC ACID Result Value Ref Range Folic Acid 12.9 >4.5 ng/mL ZINC Result Value Ref Range Zinc 52 (L) 60 - 130 mcg/dL VITAMIN B12 Result Value Ref Range Vitamin B12 318 232 - 1,245 pg/mL COMPREHENSIVE METABOLIC PANEL Result Value Ref Range BUN 23 (H) 6 - 20 mg/dL CREATININE 0.7 0.5 - 1.0 mg/dL EGFR >90 >=60 mL/min SODIUM 141 135 - 146 mmol/L POTASSIUM 4.6 3.5 - 5.1 mmol/L CHLORIDE 105 98 - 107 mmol/L CO2 25 22 - 32 mmol/L ANION GAP 11 7 - 15 mmol/L GLUCOSE 106 70 - 120 mg/dL Albumin 4.1 3.8 - 5.0 g/dL AST 19 10 - 35 U/L Alkaline Phosphatase 76 35 - 130 U/L Bilirubin, Total 0.2 <=1.2 mg/dL CALCIUM 9.3 8.4 - 10.2 mg/dL Protein 6.4 6.0 - 8.3 g/dL ALT 19 10 - 35 U/L Past Medical History: Diagnosis Date 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 Malin Phentermine HCl 37.5 MG Oral Tablet Mxptrziuah-DFET-Ttgpqugi 50-325-40 MG Oral Tablet oxyCODONE-Acetaminophen 5-325 MG Oral Tablet (Percocet) DULoxetine HCl 60 MG Oral Capsule Delayed Release Particles (Cymbalta) traZODone HCl 100 MG Oral Tablet (Desyrel) B Complex Vitamins Oral Capsule Vitamin D (Ergocalciferol) 1.25 MG (95770 UT) Oral Capsule (Drisdol) Nurtec 75 MG Oral Tablet Disintegrating (Rimegepant Sulfate) Topiramate 200 MG Oral Tablet (topAMAX) Albuterol Sulfate HFA 108 (90 Base) MCG/ACT Inhalation Aerosol Solution Tretinoin 0.05 % External Cream (Retin-A) Promethazine HCl 25 MG Oral Tablet (Phenergan) Physical Exam Vitals: 08/07/24 1143 Temp: 97.5 F (36.4 C) Pulse: 76 Resp: 16 BP: 124/70 BP Readings from Last 3 Encounters: 08/07/24 124/70 03/21/24 116/68 02/22/24 126/72 Wt Readings from Last 3 Encounters: 08/07/24 190 lb (86.2 kg) 03/21/24 190 lb 4.8 oz (86.3 kg) 03/20/24 188 lb (85.3 kg) BMI Readings from Last 3 Encounters: 08/07/24 27.26 kg/m 03/21/24 27.31 kg/m 03/20/24 26.98 kg/m Ht Readings from Last 3 Encounters: 03/20/24 5' 10" (1.778 m) 01/18/24 5' 10" (1.778 m) 09/24/23 5' 10" (1.778 m) General: alert, healthy, and no distress Head: Normocephalic, No masses, lesions, tenderness or abnormalities Eye Exam: PERRLA, extraocular movements intact, conjunctiva are pink and non- injected, sclera clear Ears: External ears normal, Canals clear, TM's Normal Nose: no mucosal erythema, no mucosal edema, no purulent discharge Oropharynx: no exudate, no erythema, lips, buccal mucosa, and tongue normal, and mucous membranes are moist Neck: supple, no adenopathy, no bruits, thyroid normal size, non-tender, without nodularity Heart: regular rate & rhythm, no murmur, no gallops, S-1 normal, and S-2 normal Lungs: chest symmetric with normal AP diameter, no chest deformities noted, no chest wall tenderness, lungs clear to auscultation Extremities: less than 2 second capillary refill, L foot with pitting edema, toes are cold, good dppulse, cannot feel pt pulse due to 1+ pitting edema Skin: skin color, texture, turgor are normal, no rashes or significant lesions Assessment and Plan Intestinal postoperative nonabsorption (Primary) Thyromegaly Lab Results Component Value Date/Time TSH - [facility] 1.73 05/12/2022 11:38 AM TSH - [facility] 1.45 10/15/2020 03:44 PM TSH - [facility] 1.31 05/17/2018 02:38 PM TSH - [facility] 1.65 10/07/2007 07:50 AM TSH - [facility] 1.31 10/16/2005 09:46 AM Uncomplicated asthma, unspecified asthma severity, unspecified whether persistent - no recent issues Encounter for screening mammogram for breast cancer - MAMMOGRAM SCREENING NANCY BILATERAL; Future; Expected date: 07/15/2025 Classical migraine without intractable migraine - seeing Dr Mallory Small vessel disease (HCC) - defers vasodilator Bilateral cold feet Wrap-Up Many issues deferred Time: I spent a total of 20-29 minutes (exact time 23 mins) on the date of service in preparation, delivery, and documentation of the care provided to Maricel Mccormack excluding any time spent in the performance of separately billed services. Mony Pedraza PA-C 08/07/2024 12:22 PM documented in this encounter Plan of Treatment Upcoming Encounters Date Type Department Care Team (Late st Contact Info) Description 11/03/2024 2:20 PM EDT Office Visit Neurology [facility] [place] [address] [facility] [place] [address] Joseph Mallory, [address] [facility] [place] [address] 02/06/2025 3:40 PM EDT Office Visit [facility] [address] [facility] [place] [phone] Mony Pedraza PA-C [address] [facility] [place] [id number] Scheduled Orders Name Type Priority Associated Diagnoses Orde r Schedule MAMMOGRAM SCREENING NANCY BILATERAL Medical Imaging Routine Encounter for screening mammogram for breast cancer Expected: 07/15/2025, Expires: 09/04/2025 Scheduled Procedures Name Priority Associated Diagnoses Date/Ti [...] this encounter Medical Devices Implanted Type Area Diesel Engine Mechanic Apprentice Device Identifier Shelf Expiration Date Model / Serial / Lot Lens Li61ao 13.00mm 25.00 - [id number] - [id number] Implanted:Qty: 1 on 05/11/2023 by Andre Murray MD at OR [facility] Left: Eye [employer] 07/04/2027 [id number] / [id number] / [id number] Lens Li61ao 13.00mm 24.00 - [id number] - [id number] Implanted:Qty: 1 on 05/25/2023 by Andre Murray MD at OR [facility] Right: Eye [employer] 12/03/2027 [id number] / [id number] / [id number] documented as of this encounter Visit Diagnoses Diagnosis Intestinal postoperative nonabsorption- Primary Other and unspecified postsurgical nonabsorption Thyromegaly Goiter, unspecified Uncomplicated asthma, unspecified asthma severity, unspecified whether persistent Encounter for screening mammogram for breast cancer Classical migraine without intractable migraine Migraine with aura, without mention of intractable migraine without mention of status migrainosus Small vessel disease (HCC) Peripheral vascular disease, unspecified Bilateral cold feet documented in this encounter Advance Directives * [...] Power of Attor ana? No Care Teams Behavioral Health Care Coordinator Relationship Specialty Start Date End Date Ramiro Mercado MD [address] [place] [address] PCP - General Family Medicine 08/01/24 documented as of this encounter
[2024-08-25] MEDS ORDERED: ONDANSETRON INJ 2 MG/ML 2 ML VIAL ONE (08:30)
[2024-08-25] MEDS ORDERED: LIDOCAINE 2% 2 ML VIAL/AMP(20MG/ML) INFIL ONE (08:30)
[2024-08-25] MEDS ORDERED: fentaNYL citrate PF 100 MCG/2 ML VIAL ONE (08:30)
[2024-08-25] MEDS ORDERED: PROPOFOL IV EMULSION 10 MG/ML 20 ML VIAL IV ONE (08:30)
[2024-08-25] MEDS: LR 60ML/HR IV SCH (08:30)
[2024-08-25] MEDS ORDERED: MIDAZOLAM HCL 1 MG/ML 2ML VIAL ONE (08:30)
[2024-08-25] MEDS: LR 15ML/HR IV SCH (08:31)
[2024-08-25] MEDS: GABAPENTIN 300 MG CAP PO SCH (08:31)
[2024-08-25] MEDS: dexAMETHasone**PF** 10 MG/ML VIAL IV SCH (08:31)
[2024-08-25] MEDS: ACETAMINOPHEN 500 MG TAB PO SCH ×2 (08:31→15:51)
[2024-08-25] MEDS: FAMOTIDINE 20 MG TAB PO SCH (08:31)
--- NOTE | 2024-08-25 09:14 | History & Physical Bridge Note ---
Date of Service August 25, 2024 History & Physical Bridge Note I have examined the patient, reviewed the History & Physical and in the interval since the performance of the History & Physical I have noted the following changes of clinical significance: no changes noted
[2024-08-25] MEDS ORDERED: ONDANSETRON INJ 2 MG/ML 2 ML VIAL IV PRN (09:55)
[2024-08-25] MEDS ORDERED: ATROPINE SULFATE 0.1 MG/ML 10ML SYR IV PRN (09:55)
[2024-08-25] MEDS ORDERED: ePHEDrine sulfate 50 MG/ML AMP IV PRN (09:55)
[2024-08-25] MEDS: TRANEXAMIC ACID 1,000 MG **IV Pre-op IV SCH (09:56)
[2024-08-25] MEDS: ceFAZolin 2000MG 2,000 MG/15 ML SYR IV SCH ×2 (10:06→17:06)
[2024-08-25] MEDS ORDERED: ePHEDrine sulfate 50 MG/5 ML SYR ONE (10:47)
[2024-08-25] MEDS: ORTHO JOINT ANESTHETIC ONE (10:49)
[2024-08-25] MEDS ORDERED: PHENYLEPHRINE 100MCG/ML 5ML SYR ONE (10:57)
[2024-08-25] MEDS: TRANEXAMIC ACID 1,000 MG **IV Intra-op IV SCH (11:06)
[2024-08-25] MEDS: ROPIV 0.5% 246mg, Ketorolac 30mg, EPINEPHrine 0.5mg in NSS INFIL SCH (11:10)
--- NOTE | 2024-08-25 11:11 | Operative Report ---
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 long head of the biceps tendon Post-Op Diagnosis: Cuff tear arthropathy of the left shoulder with tendinopathy long head of the biceps tendon I identified the patient and participated in the time-out.: Yes Procedure Operation Date: 08/25/24 10:00 Actual Procedures p Left Reverse Total Shoulder Arthroplasty(Left) with open biceps tenodesis as a distinct and separate procedure (modifier 59)- Gage Fisher DO Surgeon Gage Fisher DO Rn Telemetry Grayson Guzmán PA-C Estimated Blood Loss 150 Findings Consistent with Post-Op Diagnosis Specimens Left humeral head Description of Procedure A CPT code modifier 59: The long head of the biceps tendon was enlarged and inflamed consistent with tendinopathy. A tenodesis was opted. This was a separate and distinct portion of the procedure. For these reasons, a CPT code modifier 59 will be added to this case. Implants used: I used a [employer] Comprehensive reverse total shoulder arthroplasty system with a size 14 press fit micro humeral stem, a +6 offset humeral tray and a standard humeral bearing, a 25 mm small augment baseplate with a 6.5 mm central screw and superior and inferior locking screws, and a size 40 mm eccentric glenosphere. Maricel arrived at [facility] for the above procedure. She was seen in the preoperative holding area and the operative extremity was identified and signed. She was given a preoperative antibiotic, TXA, and an interscalene nerve block. She was taken back to the operating room, laid on table in supine position, and put under general anesthesia. She was then put into the beachchair position. The shoulder was then prepped and draped in sterile fashion. A timeout was done and the patient and the operative extremity was properly identified. A deltopectoral approach was used. Dissection was taken down through the fascia and the deltoid was retracted laterally and the conjoined tendon was retracted medially. The anterior shoulder was exposed. The biceps groove was opened up and the biceps tendon was examined extensively. The biceps tendon demonstrated enlargement and inflammatory changes consistent with longstanding inflammation in the context of osteoarthritis and cuff arthropathy. The long head of the biceps tendon was then tenodesed to the upper border of the pectoralis major. This was a separate and distinct portion of the procedure. The subscapularis was then directly released off the lesser tuberosity with a peel technique. The inferior capsule was released and the humeral head was dislocated. A canal finding reamer was sent down the center of the humeral canal. Sequential reaming up to a size 14 reamer was done. Off that reamer, a proximal humeral resection guide was placed. The proximal humerus was resected at 135 of inclination and 25 of retroversion. Osteophytes were then removed and the glenoid was exposed. Time was spent doing a complete capsular and labral release. The glenoid guide was then placed in the inferior aspect of the glenoid. A 3.2 mm Steinmann pin was then placed into the glenoid vault at 10 of inclination. The glenoid baseplate was then reamed. The final size 25 mm small augment baseplate was then impacted in the place. A 6.5 mm central screw was then placed followed by superior and inferior locking screws. A 40 mm eccentric glenosphere was then impacted into place. Surrounding soft tissues were then injected with 100 cc an orthopedic pain control cocktail. The proximal humerus was then exposed. Sequential broaching of the humerus up to a size 14 broach was done. Off that broach a +6 offset humeral tray was trialed. The shoulder was then reduced, brought through a full range of motion, and felt to be stable. The shoulder was then dislocated and the broach was removed. The final size 14 micro press-fit humeral stem was then impacted into place. A standard humeral bearing was then snapped onto a +6 offset humeral tray. The humeral tray was then impacted onto the humeral stem. The shoulder was once again reduced, brought through a full range of motion, and felt to be stable. The subscapularis was poor quality and unable to be repaired. A dilute betadyne lavage was then done for 3 minutes. The joint was then irrigated with normal saline solution. Hemostasis was obtained. The interval was closed with 2-0 Vicryl suture. The skin was then closed with 2-0 Vicryl and anibal. A Silverlon dressing was placed and the arm was rested in a regular arm sling. She was then extubated and transferred to a hospital bed. She taken to the postanesthesia care unit in stable condition. She tolerated the procedure well. Grayson Guzmán PA-C, was present for the entire procedure. He was critical for patient positioning, prepping, draping, retraction exposure, wound closure and application of sterile dressing. I attest to the content of the Intraoperative Record and any orders documented therein. Any exceptions are noted below.
--- NOTE | 2024-08-25 12:16 | Anesthesiology Progress Note ---
Date of Service August 25, 2024 Anesthesia Post Procedure Vital Signs Vital Signs: Temp Pulse Resp BP Pulse Ox O2 Del Method O2 Flow Rate 08/25/24 12:05 78 17 135/80 97 Room Air 08/25/24 11:55 77 18 138/80 98 Room Air 08/25/24 11:45 81 21 145/73 H 100 Oxymask 2 08/25/24 11:35 83 12 120/74 99 Oxymask 4 08/25/24 11:29 36.2 C L 103 H 12 144/68 H 100 Oxymask 8 08/25/24 08:24 36.7 C 69 20 146/78 H 96 Room Air Pain Intensity Left Shoulder: Pain Intensity: 8 Transfer of Care Handoff Completed per policy Notes Mental Status: alert / awake / arousable Patient Amnestic to Procedure: Yes Nausea / Vomiting: adequately controlled Pain: adequately controlled Airway Patency, RR, SpO2: stable & adequate BP & HR: stable & adequate Hydration State: stable & adequate Anesthetic Complications: no major complications apparent and Pt Satisfied with anesthetic care
[2024-08-25] MEDS: fentaNYL citrate PF 100 MCG/2 ML VIAL IV PRN (12:21)
--- NOTE | 2024-08-25 12:23 | XRay Report ---
XR shoulder LT min 2V routine CLINICAL HISTORY: Post shoulder surgery COMPARISON: None FINDINGS: 2 postop views of the left shoulder demonstrate a joint replacement with satisfactory posi tioning of the prosthetic components. Shoulder joint alignment is difficult to assess because on both the views available internal rotation is present. Postsurgical changes are identified surrounding the shoulder joint. IMPRESSION: Postop left shoulder joint with placement as described. Difficult to assess alignment due to internal rotation. ACT 112: Negative or not required by law. Electronically signed by: Nan Wang M.D. 08/25/2024 12:20 PM
[2024-08-25] MEDS ORDERED: PROMETHAZINE HCL 25 MG TAB PO PRN (13:57)
[2024-08-25] MEDS ORDERED: bisacodyL 10 MG SUPP PR PRN (13:57)
[2024-08-25] MEDS ORDERED: FUROSEMIDE 40 MG TAB PO PRN (13:57)
[2024-08-25] MEDS ORDERED: METOCLOPRAMIDE HCL INJ 5 MG/ML 2 ML VIAL IV PRN (13:57)
[2024-08-25] MEDS ORDERED: NALOXONE HCL 0.4 MG/1 ML VIAL/CARP IV PRN (13:57)
[2024-08-25] MEDS ORDERED: MAGNESIUM HYDROXIDE SUSP 30 ML UDC PO PRN (13:57)
[2024-08-25] MEDS ORDERED: ALBUTEROL HFA 8 GM INHALER INH PRN (13:57)
[2024-08-25] MEDS: HYDROmorphone INJ 0.5 MG/0.5 ML SYR IV PRN (14:39)
[2024-08-25] MEDS: BUPIVACAINE LIPOSOME 1.3% 133 MG/10 ML VIAL ONE (15:12)
[2024-08-25] MEDS: oxyCODONE HCL IR 5 MG TAB (IMMEDIATE RELEASE) PO PRN (17:05)
[2024-08-25] MEDS: SENNA 8.6 MG TAB PO SCH (20:11)
[2024-08-25] MEDS: traZODone HCL 50 MG TAB PO SCH (20:11)
[2024-08-25] MEDS: DOCUSATE SODIUM 100 MG CAP PO SCH (20:11)
[2024-08-25] MEDS: DULoxetine HCL 60 MG CAP PO SCH (20:12)
[2024-08-25 22:42] VITALS: RESP 16
[2024-08-25] MEDS: ZOLPIDEM TARTRATE 5 MG TAB PO PRN (23:05)
[2024-08-26 03:22] VITALS: TEMP 97.7
[2024-08-26] MEDS: ONDANSETRON INJ 2 MG/ML 2 ML VIAL IV PRN (04:36)
[2024-08-26] MEDS: RIMEGEPANT SULFATE 75 MG OD TAB PO PRN (04:36)
--- NOTE | 2024-08-26 06:46 | Orthopedic Progress Note ---
Date of Service August 26, 2024 Assessment & Plan (1) Status post reverse total replacement of left shoulder: Overall she is doing very well. She is having some pain in her shoulder but this is to be expected. She will be seen by physical therapy today for ambulation and range of motion exercises. She can be discharged to home later today. She will follow-up orthopedics in 2 weeks. Selena Connelly was seen and examined at bedside this morning. Overall she is doing very well. She is having a little bit of pain in the left shoulder but this is to be expected. She has been up and ambulating to the bathroom. She is no complaints.. Review of Systems All systems reviewed & are unremarkable except as noted in HPI & below. Physical Exam On physical exam of the left shoulder, the dressing is clean and dry. She has motion of her hand and her wrist. She is wearing her sling as instructed.. Results & Data Results & Data Laboratory Results . Diagnostic Findings Postoperative x-rays of the left shoulder show the prosthesis to be in anatomic alignment without any evidence of fracture, dislocation, or loosening.. PG Care Time/CCT Total # of Minutes Spent Total Time Spent with Patient: Total time spent is greater than 50% in coordination of care (as documented) at patient's floor/unit and/or counseling patient: Coding Level of Care Code 00903 Post Operative Follow-Up Diagnoses Status post reverse total replacement of left shoulder Z96.612
--- NOTE | 2024-08-26 06:47 | Discharge Summary ---
Date of Service August 26, 2024 Principal Diagnosis Same as "Discharge Diagnosis" noted below under Discharge Instructions. Discharge Exam On physical exam of the left shoulder, the dressing is clean and dry. She has motion of her hand and her wrist. She is wearing her sling as instructed.. Discharge Data Procedures Performed Operation Date: 08/25/24 10:00 Actual Procedures p Left Reverse Total Shoulder Arthroplasty(Left) - Gage Fisher DO Ordered Studies 08/25/24 05:00 US - OR guided needle placemen Routine Hospital Course (1) Status post reverse total replacement of left shoulder: On August 25, 2024 Maricel arrived at [facility] and underwent a left reverse shoulder replacement without complication. She had a general anesthetic and a left interscalene nerve block. Postoperatively, she was placed in a sling and transferred to the general orthopedic floors. Her hospital course was uneventful. On postop day #1, the vital signs were stable and her pain was well-controlled. She was able to participate well with physical therapy doing ambulation and range of motion exercises. She was then discharged to home. She will follow-up with orthopedics in 2 weeks. PG Care Time/CCT Total # of Minutes Spent Total Time Spent with Patient: Total time spent is greater than 50% in coordination of care (as documented) at patient's floor/unit and/or counseling patient: Discharge Plan Discharge Items Patient Disposition: Home - Self-Care Reason For Visit: Arthritis Left Shoulder Discharge Diagnosis: Left reverse shoulder replacement Activity: Per Instructions section Non-emergency contact: Surgeon Call non-emergency contact if: your wound has increased redness and your wound has increased drainage Follow-up/Referrals: Ramiro Mercado MD [Primary Care Provider] - Diet: Regular Addtl Attending Provider Instructions: Activity and Therapy Recommendations: * If you are using [facility] then therapy will be provided at your home until they feel you have accomplished all of your goals. * If you are using [facility] then Physical Therapy will be provided until they feel you are ready to start Outpatient Physical Therapy. * If you are not using home therapy then Outpatient Physical Therapy should start about 3-5 days from your day of surgery. Therapy will last about 8-12 weeks * Wear your sling for 3 weeks, unless otherwise instructed. You may remove your sling to shower and to dress, but otherwise, you should be in your sling at all times, including while sleeping * The shoulder replacement is very stable and you can use your hand while in the sling * You were shown a series of exercises in the hospital. Do these exercises daily including the exercises you were shown in physical therapy. Medications: * Narcotic You will likely be sent home from the hospital with a prescription for the narcotic pain medication that worked best throughout your stay. * Cefadroxil -take the antibiotic twice a day for 10 days to help prevent infection. * Other medications may be prescribed for specific circumstances. If you have any questions, please call the office at . * Resume previous home medications unless otherwise instructed Dressing Care: Leave the Silverlon dressing in place for 7 days. After 7 days you may remove the dressing. If the incision is not draining then you may leave the anibal open to air. If there is a little bit of drainage or if the anibal are getting stuck on your clothing then cover the incision with a dry dressing. The anibal will be removed at your 2 week follow-up appointment. Showering: You may shower with the Silverlon dressing in place. Do not let the shower spray hit the dressing directly. Pat the Silverlon dressing dry. If the dressing becomes wet underneath, then simply remove the dressing. Keep the incision dry until you are 7 days out from the day of surgery. After 7 days you may remove the Silverlon dressing and shower with the anibal exposed. Let soapy water run over the anibal and pat them dry. Do not scrub or soak the incision. Diet: You may resume your previous diet. Things To Watch For: * Drainage from the incision site that occurs more than one week after your surgery. * Increased redness at the incision site. * Fever above 102 degrees Fahrenheit. * Unusual chest pain or shortness of breath. * Call [facility] at with any of the above problems Follow-Up Visit: Follow-up with Dr. Fisher's office 2-3 weeks after your day of surgery. We will remove your anibal and answer any questions. If you have any additional questions or concerns, Dr Fisher is usually in the office at the same time and will be available An appointment was probably scheduled when you signed-up for surgery in the office. If you have any questions call More detailed instructions as well as Frequently Asked Questions were provided in a folder by our office when you signed-up for surgery. Please review these instructions when you get home. If you have any further questions or concerns, please feel free to call the office at [phone] Pending Studies at Discharge: No Stand-Alone Forms: My [facility] Medications and DC Order Prescriptions: New cefadroxil 500 mg capsule 500 mg PO BID 10 Days Qty: 20 0RF Continued furosemide 40 mg Tablet 40 mg PO QAM PRN (Reason: Edema) trazodone 50 mg Tablet 50 mg PO HS prednisone 5 mg Tablet 5 mg PO UD PRN (Reason: arachnoiditis) albuterol sulfate 90 mcg/actuation Hfa Aerosol Inhaler 2 puff INHALATION QID PRN (Reason: Wheezing) duloxetine [Cymbalta] 60 mg Capsule,Delayed Release(Dr/Ec) 60 mg PO HS topiramate 200 mg Capsule,Extended Release 24hr 200 mg PO QAM acetaminophen [Tylenol Extra Strength] 500 mg Tablet 500 mg PO Q6H PRN (Reason: Pain) promethazine 25 mg Tablet 25 mg PO Q6H PRN (Reason: Nausea) Nurtec ODT 75 mg Tablet,Disintegrating 75 mg PO [id number] Patient Comments: also takes prn when needed phentermine 37.5 mg Tablet 37.5 mg PO QAM Rx Instructions: must administer 30 minutes before or 1-2 hours after breakfast tretinoin 0.05 % Cream 1 applic TOPICAL HS [id number] [Esgic] 50-325-40 mg Tablet 1 tab PO Q4H PRN (Reason: Headache) magnesium oxide 500 mg magnesium Tablet 500 mg PO DAILY vitamin B complex Tablet 1 tab PO DAILY zinc 50 mg Tablet 50 mg PO DAILY ergocalciferol (vitamin D2) [Vitamin D2] 1,250 mcg (50,000 unit) Capsule 1,250 mcg PO WK Patient Comments: takes on wednesday calcium citrate-vitamin D3 [Calcitrate-Vitamin D] 315 mg-6.25 mcg (250 unit) Tablet 1 tab PO QAM oxycodone 5 mg tablet 5 mg PO Q4H PRN (Reason: pain) Qty: 30 0RF Discharge Orders: Discharge Order (Routine); Ordered 08/26/24 Ordered By: Gage Fisher Admission Data Admit Date/Time: 08/25/24 11:39 Attending Provider: Gage Fisher Admit Provider: Gage Fisher Primary Care Provider: Ramiro Mercado
[2024-08-26 07:11] VITALS: BP 120/74; O2SAT 96
[2024-08-26] MEDS: MULTIVITAMIN TAB PO SCH (08:15)
[2024-08-26] MEDS: dexAMETHasone 4 MG TAB PO SCH (08:15)
[2024-08-26 11:54] VITALS: PULSE 77
== END 2024-08-26 14:38 | disposition home or self-care (01) ==
LOC: PACUINP 07:36 → ASU 07:36 → 3N 15:44